=== PATIENT | female | born 1940 | race Caucasian/White ===

== ENCOUNTER 2020-08-02 08:51 | Outpatient (NON) | payer MEDICARE, SELFPAY ==
[2020-08-03 22:35] LABS: SARS-CoV-2 RNA PCR Negative
== END 2020-08-02 08:52 ==
LOC: ANHCOVIDDT 08:53
PROVIDERS: PCP Family Medicine; Visit Provider Nurse Practitioner Family
DX: Z20.828 Contact with and (suspected) exposure to other viral communicable diseases (principal)
CPT/HCPCS: 87635; C9803; U0003

== ENCOUNTER 2020-11-09 11:54 | Observation (INO) | payer MEDICARE, SELFPAY ==
[2020-11-09] VITALS (29 sets, daily range): BP systolic 134–174; BP diastolic 82–100; PULSE 90–102; RESP 15–20; TEMP 36.2–37.2; O2SAT 97–100
--- NOTE | 2020-11-09 12:16 | ED.GENADULT ---
HPI - General Adult General Chief complaint: GI Bleed Stated complaint: rectal bleeding Time Seen by Provider: 11/09/20 12:07 Source: RN notes reviewed History of Present Illness HPI narrative: Patient presents to emergency department from home for GI bleed. Patient states that starting approximately 6:30 AM this morning she has had numerous bowel movements that is containing dark maroon blood clots and some bright red blood. Patient states that she is on a baby aspirin only she denies having any fever chills abdominal pain nausea vomiting or any other symptoms. She states she last had a colonoscopy 5 years ago denies any other symptoms at this time Related Data Home Medications Medication Instructions Recorded Confirmed aspirin 81 mg tablet,delayed 81 mg PO DAILY 10/14/19 11/09/20 release calcium carbonate 600 mg calcium 600 mg PO DAILY 10/14/19 11/09/20 (1,500 mg) tablet ergocalciferol (vitamin D2) 1,250 1,250 mcg PO .biweekly cap 10/14/19 11/09/20 mcg (50,000 unit) capsule colchicine 0.6 mg PO DAILY 11/09/20 Allergies Allergy/AdvReac Type Severity Reaction Status Date / Time adhesive tape Allergy Intermediate RED/RASH Verified 02/12/19 09:47 Review of Systems Review of Systems: Narrative: Gen.: Denies fevers or chills ENT: Denies congestion Respiratory: Denies shortness of breath or cough CV: Denies chest pain or palpitations GI: See HPI denies burning, urgency, frequency or hematuria Musculoskeletal: Denies back pain or muscle pain Neuro: Denies numbness, tingling, weakness or focal weakness Skin: Denies rash Except as documented, all other systems reviewed and negative [facility] Past Medical History Medical History (Updated 11/09/20 @ 15:23 by Jaylon Stoddard DO) Anxiety and depression (~1999) Benign essential hypertension (~1989) Breast cancer in female (~11/2003) 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 Diverticulosis Gout (~2016) CHARLES (iron deficiency anemia) Osteoporosis (~2009) Urinary incontinence Surgical History Surgical History H/O mastectomy left breast 12/03/03, rt breast 11/21/11 Family History Family History Father Diabetes mellitus Grandparent Cerebrovascular accident Mother Family history of lung cancer Social History Social History Smoking status: Former smoker Smoking end date: 09/30/98 Alcohol intake: current Exam Narrative: Exam Narrative: APPEARANCE: No acute distress, nontoxic, resting in bed EYES: EOMI HEENT: Normocephalic, atraumatic, OMM RESPIRATORY: No respiratory distress Clear to auscultation bilaterally with no rhonchi wheezing or rales. CARDIOVASCULAR: Regular rate and rhythm without murmurs rubs or gallops. ABDOMINAL: Soft, nontender, nondistended, no rebound or guarding Rectal: No hemorrhoids or gross dark maroon blood that is Hemoccult positive MUSCULOSKELETAl: Moves all extremities. No clubbing, cyanosis or edema. NEURO: Awake and alert. Following commands, speech normal, no focal deficits SKIN:: Warm, dry. No rashes lesions or abrasions PSYCHIATRIC: Normal affect/mood, Course Course Emergency Course: Discussed with Dr. Maza for GI presentation work-up agrees with consult will follow as inpatient Discussed with Dr. Smith for hospital service presentation work-up agrees with admission at this time Discussed with patient and family results of workup and diagnosis. Discussed need for admission. Patient and family understand and agree to current treatment plan Vital Signs Vital signs: Vital Signs Temperature 97.2 F L 11/09/20 12:06 Pulse Rate 101 H 11/09/20 12:06 Respiratory Rate 17 11/09/20 12:06 Blood Pressure 149/89 H 11/09/20 12:06 Pulse Oximetry 100 11/09/20 12:06 Temperature 97.2 F L
[2020-11-09 12:20] LABS: Basophils Absolute Auto 0.1 K/mm3 (0.0-0.1); Basophils Percent Auto 1.5 % (0.2-1.2); Eosinophils Absolute Auto 0.1 K/mm3 (0-0.3); Eosinophils Percent Auto 3.1 % (0-4.4); Hemoglobin 12.8 g/dL (12.0-15.0); Lymphocytes Absolute Auto 1.69 K/mm3 (0.9-3.2); Mean Corpuscular HGB Conc 32.8 g/dl (32-36); Mean Corpuscular Hemoglobin 32.7 pg (26-34); Mean Corpuscular Volume 99.5 fl (80-100); Mean Platelet Volume 9.6 fl (7.4-10.4); Monocytes Absolute Auto 0.9 K/mm3 (0.1-0.6); Monocytes Percent Auto 19.9 % (2.6-8.5); Neutrophils Absolute Auto 1.8 K/mm3 (1.3-6.7); Neutrophils Percent Auto 38.5 % (45.5-73.1); Platelet Count Result 202 k/mm3 (150-375); Red Blood Count 3.92 M/mm3 (4.2-5.4); Red Cell Distribution Width 14.5 % (11.5-14.5); White Blood Count 4.6 K/mm3 (4.5-10.0)
[2020-11-09 12:31] LABS: INR 0.9
[2020-11-09 12:32] LABS: Partial Thromboplastin Time 27.6 SECONDS (22.3-36.8)
[2020-11-09 12:35] LABS: Alanine Aminotransferase 18 U/L (4-35); Albumin Level 4.3 g/dL (3.5-5.1); Alkaline Phosphatase 97 U/L (38-126); Anion Gap 7 mmol/L (8-16); Aspartate Amino Transferase 22 U/L (14-36); Bilirubin,Total 0.5 mg/dL (0.2-1.3); Blood Urea Nitrogen 16 mg/dL (7-17); Calcium 9.8 mg/dL (8.4-10.2); Carbon Dioxide 33 mmol/L (22-30); Chloride 102 mmol/L (98-107); Estimated CRCL calculation 49 ml/min; Estimated Glomerular Filt Rate > 60; Glucose 100 mg/dL (65-105); Potassium 3.4 mmol/L (3.4-5.0); Sodium 142 mmol/L (137-145)
[2020-11-09 13:03] LABS: Lactic Acid Reflex 1.1 mmol/L (0.7-2.1)
[2020-11-09] MEDS: PANTOPRAZOLE SODIUM IV 40 MG VIAL 80 MG IV PUSH (15:09)
[2020-11-09 15:17] LABS: Hematocrit 34.3 % (37.0-47.0); Hemoglobin 11.3 g/dL (12.0-15.0)
--- NOTE | 2020-11-09 15:58 | PC.NURSE ---
This patient, Nicole Peña, was admitted to 3 [facility] Surg Room 330-01. Patient/family oriented to hospital policies and general routines including ID bracelet, bed and alarms, visiting hours, pain management, procedures, bathroom and other care routines, personal items, smoking policy, room service/diet, and visiting hours. Information on how to activate the Rapid Response Team has been discussed. Patient/Family are encouraged to report perceived risks to care and to ask questions if they do not understand what they are told or what they should do.
--- NOTE | 2020-11-09 17:01 | PM.IMHP ---
H&P: HPI History of Present Illness Date/Time: 11/09/20 17:01 Chief Complaint: rectal bleeding Narrative: Nicole Peña is a 80 year old female with history of anxiety/depression, HTN, Breast Ca (s/p b/l mastectomy, chemo and radiation), SAH, and diverticulosis who presented to ED on 11/09 from her PCPs office with complaints of rectal bleeding that started earlier in the morning. Patient states starting at around 6:00 am this morning, she had four liquid bowel movements with significant amount of dark clotting, and when she wiped, she had bright red blood on toilet tissue, enough to prompt her to present to her PCP. While there, she had two more bloody BMs mixed with bright red and dark/maroon blood, thus was directed to the ED for further evaluation. She denied any associated symptoms such as rectal pain, abdominal pain, dizziness/lightheadedness. She has never had history of rectal bleeding/GI bleed in the past. No family history of colon cancer. She is not on any blood thinners. While in the ED, she was found to have a normal H&H and elevated BP. Dr. Addison was consulted from the ED for further evaluation. Patient was admitted under setting of suspected GI bleed, likely from known diverticulosis. Currently, patient denies f/c/s, myalgias/arthralgias, headaches, dizziness, lightheadedness, cp/palpitations, sob/cough, n/v/d/c, abd pain, dysuria, hematuria, cloudy urine, calf pain/swelling. 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 She wishes to be a DNR. Her PCP is Dr. Jack. Smoking packs per day: 1 Smoking cigarettes per day: 20.0 Smoking status: Former smoker Tobacco type: cigarettes Smoking end date: 09/30/98 Additional smoking assessment comments: 20 YRS AGO SMOKED AND HAS NOT EVER SINCE Alcohol intake: current Meds Home Medications and Allergies Home Medications Medication Instructions Recorded Confirmed Type aspirin 81 mg tablet,delayed 81 mg PO DAILY 10/14/19 11/09/20 History release calcium carbonate 600 mg calcium 600 mg PO DAILY 10/14/19 11/09/20 History (1,500 mg) tablet diltiazem HCl 120 mg tablet 120 mg PO DAILY #90 tablet 10/14/19 11/09/20 Rx ergocalciferol (vitamin D2) 1,250 1,250 mcg PO .biweekly cap 10/14/19 11/09/20 History mcg (50,000 unit) capsule venlafaxine 75 mg capsule,extended 75 mg PO DAILY #90 cap 10/14/19 11/09/20 Rx release 24 hr losartan 100 mg tablet 100 mg PO DAILY #90 tablet 11/26/19 11/09/20 Rx alendronate 70 mg tablet 70 mg PO WEEKLY #12 tablet 04/21/20 11/09/20 Rx allopurinol 300 mg tablet 300 mg PO DAILY #90 tablet 11/08/20 11/09/20 Rx colchicine 0.6 mg PO DAILY 11/09/20 History Allergies Allergy/AdvReac Type Severity Reaction Status Date / Time adhesive tape Allergy Intermediate RED/RASH Verified 02/12/19 09:47 Vital Signs Vital Signs Temp Pulse Resp BP Pulse Ox 97.2 F L 101 H 17 149/89 H 100 11/09/20 12:06 11/09/20 12:06 11/09/20 12:06 11/09/20 12
--- NOTE | 2020-11-09 17:43 | WPDGICN ---
Assessment and Plan Assessment and plan (1) GI bleed: Code(s): K92.2 - Gastrointestinal hemorrhage, unspecified Status: Acute Assessment and Plan: most likely diverticular source, she still had clots last time used restroom supportive care, monitor h/h she is agreeable to have colonoscopy tomorrow to look if still ongoing bleeding (2) Rectal bleeding: Code(s): K62.5 - Hemorrhage of anus and rectum Status: Acute Assessment and Plan: monitor and colonoscopy tomorrow (3) Acute blood loss anemia: Code(s): D62 - Acute posthemorrhagic anemia Status: Acute Assessment and Plan: trend h/h (4) Colon, diverticulosis: Code(s): K57.30 - Diverticulosis of large intestine without perforation or abscess without bleeding Status: Acute GI Consult Note Consult date/time: 11/09/20 17:43 Reason for consult: rectal bleed HPI: Nicole Peña is a 80 year old female with history of anxiety, HTN, Breast Ca (s/p b/l mastectomy, chemo and radiation), and last colonoscopy 2019 with left sided diverticulosis, hemorrhoids without polyps here with new onset of rectal bleeding with clots x5 today, never had bleeding. Denies abdominal pain, nausea or diarrhea. She is not taking blood thinners other than baby aspirin. Hb 11.3 (on arrival was 12.8). Denies fatigue or dizziness. Review of Systems Constitutional: Constitutional: Denies fatigue Eyes: Eyes: Reports no additional eye complaints ENT: Reports system reviewed and no additional complaints, except as documented Cardiovascular: Cardiovascular: Reports no additional cardiovascular complaints Respiratory: Respiratory: Denies dyspnea Gastrointestinal: Gastrointestinal: Denies abdominal pain and Reports hematochezia Genitourinary: Genitourinary: Denies flank pain Musculoskeletal: Musculoskeletal: Denies neck pain Integumentary/Breasts: Skin/Breast: Denies dry skin Neurologic: Reports system reviewed and no additional complaints, except as documented Psychiatric: Psychiatric: Denies behavioral changes PMFSH Past Medical History Medical History Anxiety and depression (~1999) Benign essential hypertension (~1989) Breast cancer in female (~11/2003) 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 She wishes to be a DNR. Her PCP is Dr. Jack. Smoking packs per day: 1 Smoking cigarettes per day: 20.0 Smoking status: Former smoker Tobacco type: cigarettes Smoking end date: 09/30/98 Additional smoking assessment comments: 20 YRS AGO SMOKED AND HAS NOT EVER SINCE Alcohol intake: current Meds Home Medications and Allergies Home Medications Medication Instructions Recorded Confirmed Type aspirin 81 mg tablet,delayed 81 mg PO DAILY 10/14/19 11/09/20 History release calcium carbonate 600 mg calcium 600 mg PO DAILY 10/14/19 11/09/20 History (1,500 mg) tablet diltiazem HCl 120 mg tablet 120 mg PO DAILY #90 tablet 10/14/19 11/09/20 Rx ergocalciferol (vitamin D2) 1,250 1,250 mcg PO .biweekly cap 10/14/19 11/09/20 History mcg (50,000 unit) capsule venlafaxine 75 mg capsule,extended 75 mg PO DAILY #90 cap 10/14/19 11/09/20 Rx release 24 hr losartan 100 mg tablet 100 mg PO DAILY #90
[2020-11-09] MEDS: SODIUM CHLORIDE 0.9% IV 1,000 ML 100 ML IV CONT (18:22)
[2020-11-09] MEDS: dilTIAZem HCL 60 MG TABLET 120 MG PO (18:23)
[2020-11-09] MEDS: BISACODYL 5 MG TABLET EC 20 MG PO (18:23)
[2020-11-09] MEDS: PEG (High)/E-LYTE SOLN 4,000 ML BTL 4000 ML PO (18:23)
[2020-11-10] VITALS (10 sets, daily range): BP systolic 146–176; BP diastolic 80–97; PULSE 93–115; RESP 16–25; TEMP 36.3–37.2; O2SAT 97–100
[2020-11-10 02:58] LABS: Eosinophils Absolute Auto 0.1 K/mm3 (0-0.3); Eosinophils Percent Auto 2.8 % (0-4.4); Hematocrit 38.4 % (37.0-47.0); Hemoglobin 13.1 g/dL (12.0-15.0); Immature Granulocyte Absolute 0.01 K/mm3 (0.00-0.031); Immature Granulocyte Percent A 0.3 % (0-0.5); Lymphocytes Absolute Auto 1.04 K/mm3 (0.9-3.2); Lymphocytes Percent Auto 26.1 % (18.3-44.2); Mean Corpuscular HGB Conc 34.1 g/dl (32-36); Mean Corpuscular Hemoglobin 32.6 pg (26-34); Mean Corpuscular Volume 95.5 fl (80-100); Mean Platelet Volume 9.8 fl (7.4-10.4); Monocytes Absolute Auto 0.8 K/mm3 (0.1-0.6); Monocytes Percent Auto 20.1 % (2.6-8.5); Neutrophils Percent Auto 49.7 % (45.5-73.1); Platelet Count Result 163 k/mm3 (150-375); Red Blood Count 4.02 M/mm3 (4.2-5.4); Red Cell Distribution Width 13.9 % (11.5-14.5)
[2020-11-10 03:09] LABS: Anion Gap 9 mmol/L (8-16); Blood Urea Nitrogen 13 mg/dL (7-17); Calcium 9.5 mg/dL (8.4-10.2); Carbon Dioxide 28 mmol/L (22-30); Chloride 102 mmol/L (98-107); Creatine Kinase 55 U/L (30-135); Estimated CRCL calculation 58 ml/min; Estimated Glomerular Filt Rate > 60; Glucose 98 mg/dL (65-105); Sodium 139 mmol/L (137-145)
[2020-11-10] MEDS: MAGNESIUM CITRATE 300 ML BTL 150 ML PO (05:20)
[2020-11-10] MEDS: SODIUM CHLORIDE 0.9% IV 1,000 ML 100 ML IV CONT (05:28)
[2020-11-10] MEDS: allopurinoL 300 MG TABLET PO (09:12)
[2020-11-10] MEDS: COLCHICINE 0.6 MG TABLET PO (09:12)
[2020-11-10] MEDS: LOSARTAN POTASSIUM 100 MG TABLET PO (09:12)
[2020-11-10] MEDS: CALCIUM CARBONATE (OSCAL) 500 MG TABLET PO ×2 (09:12→16:54)
--- NOTE | 2020-11-10 09:27 | PM.IMPN ---
Progress Note: A&P Assessment and Plan (1) GI bleed: Code(s): K92.2 - Gastrointestinal hemorrhage, unspecified Status: Acute Assessment and Plan: Patient has history of diverticulosis and internal hemorrhoids. [place] that this is likely due to diverticulosis. Bleeding has stopped. Hgb 13.1 this morning; stable. Dr. Maza consulted from the ED and appreciate recommendations; plans for colonoscopy this afternoon Supportive Care Await colonoscopy results and further GI rec Pending results of colonoscopy, hopefully discharge today or tomorrow Repeat H&H early next week Monitor for now F/u with PCP (2) Acute blood loss anemia: Code(s): D62 - Acute posthemorrhagic anemia Status: Acute Assessment and Plan: H&H WNL today. Suspect from GI bleed, likely from diverticulosis. Patient does have history of CHARLES in the past. Monitor H&H as outpatient after discharge (3) Gout: Onset Date: ~2016 Code(s): M10.9 - Gout, unspecified Status: Acute Assessment and Plan: No acute issues Resume home meds today (4) Anxiety and depression: Onset Date: ~1999 Code(s): F41.9 - Anxiety disorder, unspecified; F32.9 - Major depressive disorder, single episode, unspecified Status: Chronic Assessment and Plan: No acute issues Resume home meds today (5) Benign essential hypertension: Onset Date: ~1989 Code(s): I10 - Essential (primary) hypertension Status: Acute Assessment and Plan: BP 170s sys most recently, although she has not taken her medications since 11/08; these have been resumed Continue home medications Metoprolol 5 mg IV Q6hr PRN for tachycardia Monitor Subjective Date/time seen: 11/10/20 09:27 Interval history: Patient is a 80 yo F with history of anxiety/depression, HTN, Breast Ca (s/p b/l mastectomy, chemo and radiation), SAH, and diverticulosis who is seen in follow up for suspected lower GI bleed likely from diverticulosis. Patient states she feels better today. She has had several BMs since yesterday, which are nonbloody and nonmelenic now. Still no abd pain, no fevers/chills, or dizziness/lightheadedness. No other complaint at the moment other than wanting to eat. Denies headaches, changes in v/h, cp/palpitations, sob/cough, n/v, dysuria, calf pain/swelling. Review of Systems Review of Systems: All systems reviewed & are unremarkable except as noted in HPI and below Exam Narrative: Exam Narrative: General: Patient sitting on side of bed in no acute distress. RN in room at time of visit HEENT: Normocephalic, EOMI, oral mucosa moist. Cardiovascular: Tachycardic, regular rate. systolic murmur appreciated. Tele shows sinus tachycardia with occasional PVCs. Patient asymptomatic Respiratory: Lungs clear to auscultation all sanchez. Non-labored breathing. Abdomen: Soft, non-tender, non-distended, bowel sounds present, hypoactive Extremities: Peripheral pulses intact. No edema. NTTP b/l calves Neuro: No focal neurological deficits. Speech is clear. A&Ox3 Objective Data Vital Signs Vital Signs: Last Vital Signs Temp 97.4 F L 11/10/20 06:00 Pulse 115 H 11/10/20 06:00 Resp 20 11/10/20 06:00 BP 176/97 H 11/10/20 06:00 Pulse Ox 99 11/10/20 06:00 Intake/Output Intake/Output: Intake & Output 11/07/20 11/08/20 11/09/20 11/10/20 23:59 23:59 23:59 23:59 Intake Total 490 2000 Output Total 1800 Balance 490 200 Meds/Results Medications: Active Medications Generic Name Dose Route Start Last Admin Trade Name Freq PRN Reason Stop Dose Admin Allopurinol 300 mg 11/10/20 09:00 11/10/20 09:12 Allopurinol 300 Mg Tablet PO 300 mg DAILY ROZINA Administration Calcium Carbonate 500 mg 11/10/20 08:
--- NOTE | 2020-11-10 09:58 | WPDANESEPPF ---
Anes - Initial Pre Proc Eval Procedure: Operation Date: 11/10/20 15:15 Proposed Procedures p Colonoscopy - Deniz Addison MD Date/Time: 11/10/20 09:58 Surgeon: William Zuniga PA-C Pre Op Diagnosis: Gi bleed Patient Data Age: 80 Gender: F Height: 1.57 m Weight: 56.2 kg Last Vital Signs Temp 36.3 C L 11/10/20 06:00 Pulse 115 H 11/10/20 06:00 Resp 20 11/10/20 06:00 BP 176/97 H 11/10/20 06:00 Pulse Ox 99 11/10/20 06:00 Allergies Allergy/AdvReac Type Severity Reaction Status Date / Time adhesive tape Allergy Intermediate RED/RASH Verified 02/12/19 09:47 Home Medications Medication Instructions Recorded Confirmed Type aspirin 81 mg tablet,delayed 81 mg PO DAILY 10/14/19 11/09/20 History release calcium carbonate 600 mg calcium 600 mg PO BID 10/14/19 11/09/20 History (1,500 mg) tablet diltiazem HCl 120 mg tablet 120 mg PO DAILY #90 tablet 10/14/19 11/09/20 Rx ergocalciferol (vitamin D2) 1,250 1,250 mcg PO [id number] cap 10/14/19 11/09/20 History mcg (50,000 unit) capsule venlafaxine 75 mg capsule,extended 75 mg PO DAILY #90 cap 10/14/19 11/09/20 Rx release 24 hr losartan 100 mg tablet 100 mg PO DAILY #90 tablet 11/26/19 11/09/20 Rx alendronate 70 mg tablet 70 mg PO WEEKLY #12 tablet 04/21/20 11/09/20 Rx allopurinol 300 mg tablet 300 mg PO DAILY #90 tablet 11/08/20 11/09/20 Rx Systane (PF) 1 drp EACH EYE TID 11/09/20 11/09/20 History colchicine 0.6 mg PO DAILY 11/09/20 11/09/20 History vitamins A,C,[id number] 2 tablet PO BID 11/09/20 11/09/20 History [Ocuvite Preservision] Laboratory Tests 11/09/20 11/09/20 11/09/20 12:09 12:09 12:09 WBC 4.6 K/mm3 K/mm3 (4.5-10.0) RBC 3.92 M/mm3 L M/mm3 (4.2-5.4) Hgb 12.8 g/dL g/dL (12.0-15.0) Hct 39.0 % % (37.0-47.0) MCV 99.5 fl fl (80-100) MCH 32.7 pg pg (26-34) MCHC 32.8 g/dl g/dl (32-36) RDW 14.5 % % (11.5-14.5) Plt Count 202 k/mm3 k/mm3 (150-375) MPV 9.6 fl fl (7.4-10.4) Immature Gran % (Auto) 0.0 % % (0-0.5) Neut % (Auto) 38.5 % L % (45.5-73.1) Lymph % (Auto) 37.0 % % (18.3-44.2) [place] % (Auto) 19.9 % H % (2.6-8.5) Eos % (Auto) 3.1 % % (0-4.4) Baso % (Auto) 1.5 % H % (0.2-1.2) Lymph # (Auto) 1.69 K/mm3 K/mm3 (0.9-3.2) [place] # (Auto) 0.9 K/mm3 H K/mm3 (0.1-0.6) Eos # (Auto) 0.1 K/mm3 K/mm3 (0-0.3) Baso # (Auto) 0.1 K/mm3 K/mm3 (0.0-0.1) Abs Immat Gran (auto) 0.00 K/mm3 K/mm3 (0.00-0.031) Absolute Neuts (auto) 1.8 K/mm3 K/mm3 (1.3-6.7) Absolute Nucleated RBC 0.0 K/mm3 K/mm3 (0.0-0.012) Nucleated RBC % 0.0 % % (0.0-0.2) PT 13.0 Seconds Seconds (11.1-14.7) INR 0.9 APTT 27.6 SECONDS SECONDS (22.3-36.8) Sodium 142 mmol/L mmol/L (137-145) Potassium 3.4 mmol/L mmol/L (3.4-5.0) Chloride 102 mmol/L mmol/L (98-107) Carbon Dioxide 33 mmol/L H mmol/L (22-30) Anion Gap 7 mmol/L L mmol/L (8-16) BUN 16 mg/dL mg/dL (7-17) Creatinine 0.60 mg/dL L mg/dL (0.7-1.0) Estim Creat Clear Calc 49 ml/min ml/min Estimated GFR > 60 (59 - ) Glucose 100 mg/dL mg/dL (65-105) Lactic Acid Calcium 9.8 mg/dL mg/dL (8.4-10.2) Total Bilirubin 0.5 mg/dL mg/dL (0.2-1.3) AST 22 U/L U/L (14-36) ALT 18 U/L U/L (4-35) Alkaline Phosphatase 97 U/L U/L (38-126) Total Creatine Kinase Total Protein 8.0 g/dL g/dL (6.3-8.2) Albumin 4.3 g/dL g/dL (3.5-5.1) Blood Type Antibody Screen 11/09/20 11/09/20 11/09/20 12:09 12:29 15:07 WBC RBC Hgb 11.3 g/dL L g/dL (12.0-1
[2020-11-10] MEDS: LACTATED RINGERS 1,000 ML 150 ML IV CONT (14:23)
--- NOTE | 2020-11-10 16:21 | PM.DS ---
DS: Admitting Diagnosis Admitting Diagnosis Admitting Diagnosis: GI bleed DS: Discharge Diagnosis Discharge Diagnosis (1) GI bleed: Code(s): K92.2 - Gastrointestinal hemorrhage, unspecified Status: Acute Assessment and Plan: Patient has history of diverticulosis and internal hemorrhoids. [place] that this is likely due to diverticulosis. Bleeding has stopped. Hgb 13.1 this morning; stable. Dr. Maza consulted from the ED and appreciate recommendations; Colonoscopy performed today per Dr. Maza which showed multiple diverticula in the descending and sigmoid colon but no active bleeding or inflammation, small internal hemorrhoids seen as well. Okay for discharge from GI standpoint Discharge home today Repeat H&H early next week High Fiber diet F/u with PCP (2) Acute blood loss anemia: Code(s): D62 - Acute posthemorrhagic anemia Status: Acute Assessment and Plan: H&H WNL today. Suspect from GI bleed, likely from diverticulosis. Patient does have history of CHARLES in the past. Monitor H&H as outpatient after discharge (3) Gout: Onset Date: ~2016 Code(s): M10.9 - Gout, unspecified Status: Acute Assessment and Plan: No acute issues Resume home meds today (4) Anxiety and depression: Onset Date: ~1999 Code(s): F41.9 - Anxiety disorder, unspecified; F32.9 - Major depressive disorder, single episode, unspecified Status: Chronic Assessment and Plan: No acute issues Resume home meds today (5) Benign essential hypertension: Onset Date: ~1989 Code(s): I10 - Essential (primary) hypertension Status: Acute Assessment and Plan: BP 170s sys most recently, although she has not taken her medications since 11/08 and just resumed today Continue home medications Metoprolol 5 mg IV Q6hr PRN for tachycardia Monitor DS: Summary Hospital Course Reason for hospitalization: GI bleed, mild anemia Hospital Course: Date of arrival: 11/09/20 Date of discharge: 11/10/20 Per H&P 11/09/20: Nicole Peña is a 80 year old female with history of anxiety/depression, HTN, Breast Ca (s/p b/l mastectomy, chemo and radiation), SAH, and diverticulosis who presented to ED on 11/09 from her PCPs office with complaints of rectal bleeding that started earlier in the morning. Patient states starting at around 6:00 am this morning, she had four liquid bowel movements with significant amount of dark clotting, and when she wiped, she had bright red blood on toilet tissue, enough to prompt her to present to her PCP. While there, she had two more bloody BMs mixed with bright red and dark/maroon blood, thus was directed to the ED for further evaluation. She denied any associated symptoms such as rectal pain, abdominal pain, dizziness/lightheadedness. She has never had history of rectal bleeding/GI bleed in the past. No family history of colon cancer. She is not on any blood thinners. While in the ED, she was found to have a normal H&H and elevated BP. Dr. Addison was consulted from the ED for further evaluation. Patient was admitted under setting of suspected GI bleed, likely from known diverticulosis. Currently, patient denies f/c/s, myalgias/arthralgias, headaches, dizziness, lightheadedness, cp/palpitations, sob/cough, n/v/d/c, abd pain, dysuria, hematuria, cloudy urine, calf pain/swelling. Patient was admitted to the hospitalist service for further management/treatment. H&H was trended and became mildly anemic on 11/09, but H&H then trended to within normal limits on 11/10. Dr. Addison performed Colonoscopy on 11/10 and found nonbleeding diverticula and internal hemorrhoids; high fiber diet was recommended. Plan was for her to hold her 81 mg aspirin for about 1 we
[2020-11-10] MEDS: POTASSIUM CHLORIDE 20 MEQ TABLET 40 MEQ PO (16:53)
== END 2020-11-10 18:15 | disposition home or self-care (01) ==
LOC: ANHED 14:29 → ANH3MEDSUR 15:16
PROVIDERS: Internal Medicine Gastroenterology; Admitting Provider Internal Medicine; Emergency Provider Emergency Medicine; PCP Family Medicine; Visit Provider Physician Assistant
PROC: 0DJD8ZZ Inspection of Lower Intestinal Tract, Via Natural or Artificial Opening Endoscopic (ICD-10-PCS; CPT 45378; principal; 2020-11-10 15:15)
DX: K57.30 Diverticulosis of large intestine without perforation or abscess without bleeding (principal); D62 Acute posthemorrhagic anemia; M10.9 Gout, unspecified; F41.9 Anxiety disorder, unspecified; I10 Essential (primary) hypertension; K64.8 Other hemorrhoids; F32.9 Major depressive disorder, single episode, unspecified; D50.9 Iron deficiency anemia, unspecified; M81.0 Age-related osteoporosis without current pathological fracture; E87.6 Hypokalemia; R32 Unspecified urinary incontinence; Z90.13 Acquired absence of bilateral breasts and nipples; Z87.891 Personal history of nicotine dependence; Z92.3 Personal history of irradiation; Z92.21 Personal history of antineoplastic chemotherapy; Z87.820 Personal history of traumatic brain injury; Z79.899 Other long term (current) drug therapy; Z85.3 Personal history of malignant neoplasm of breast; Z79.82 Long term (current) use of aspirin
CPT/HCPCS: 45378; 36415; 80048; 80053; 82550; 83605; 85014; 85018; 85025; 85610; 85730; 86850; 86900; 86901; 96360; 96365; 96366; 99285; A9270; C9113; G0378; J2001; J2704; J7030; J7060; J7120

== ENCOUNTER 2020-12-23 13:26 | Outpatient (CLI) | payer MEDICARE, SELFPAY ==
--- NOTE | 2020-12-23 13:51 | ECHO_ITS ---
Patient Info Name: Nicole Peña Age: 80 years : 1940 Gender: Female Ht: 62 in Wt: 125 lbs BSA: 1.58 m2 HR: 95 bpm BP: 167 / 97 mmHg Technical Quality: Good Exam Date: 12/23/2020 1:55 PM Exam Location: [facility] Patient Status: Outpatient Admit Date: 12/23/2020 Staff Ordering Physician: Duong Jack MD Chemistry Laboratory Technician: Dilma Garcia RDCS Attending Provider: Duong Jack MD Exam Type: CA echo doppler color flow Study Info Indications R01.1 - Cardiac murmur, unspecified Complete two-dimensional, color flow and Doppler transthoracic echocardiogram is performed. Summary 1. Complete two-dimensional, color flow and Doppler transthoracic echocardiogram is performed. 2. Left ventricular chamber dimension is normal. 3. Ventricular septum is sigmoid shaped. No LVOT obstruction. 4. Left ventricular systolic function is normal, estimated at 60-65%. 5. There is mildly increased left ventricular wall thickness. 6. The left ventricular diastolic function is grade I diastolic dysfunction. 7. E/e' 28 is significantly elevated. 8. There is moderate aortic valve sclerosis. 9. There is trace aortic valve regurgitation. 10. There is mild to moderate aortic valve stenosis with a peak velocity of 235 cm/s, mean gradient of 12 mmHg, and aortic valve area of 2.2 cm2. Aortic valve area by planimetry is 1.3 cm2. 11. The mitral valve has mildly thickened leaflets and moderately calcified annulus. 12. There is mild mitral valve regurgitation. 13. No pulmonary hypertension, estimated pulmonary arterial systolic pressure is 34 mmHg. Left Ventricle E/e' 28 is significantly elevated. Ventricular septum is sigmoid shaped. No LVOT obstruction. Left ventricular chamber dimension is normal. Left ventricular systolic function is normal, estimated at 60-65%. There is mildly increased left ventricular wall thickness. The left ventricular diastolic function is grade I diastolic dysfunction. Right Ventricle Right ventricular chamber dimension is normal. Right ventricular systolic function is normal. Left Atria Left atrial chamber dimension is normal. Right Atria Right atrial chamber dimension is normal. Aortic Valve There is mild to moderate aortic valve stenosis with a peak velocity of 235 cm/s, mean gradient of 12 mmHg, and aortic valve area of 2.2 cm2. Aortic valve area by planimetry is 1.3 cm2. The aortic valve is trileaflet. There is moderate aortic valve sclerosis. There is trace aortic valve regurgitation. Pulmonic Valve There is no pulmonic regurgitation. Mitral Valve The mitral valve has mildly thickened leaflets and moderately calcified annulus. There is no mitral valve stenosis. There is mild mitral valve regurgitation. Tricuspid Valve There is no tricuspid valve regurgitation. No pulmonary hypertension, estimated pulmonary arterial systolic pressure is 34 mmHg. Pericardium/Pleural There is no pericardial effusion. Inferior Vena Cava Normal inferior vena cava with >50% collapse upon inspiration consistent with normal right atrial pressure, 5 mmHg. Aorta The aortic root size at the sinus of Valsalva is normal. Left Ventricular Outflow Tract Name Value Normal LVOT 2D LVOT Diameter
== END 2020-12-23 13:27 | disposition home or self-care (01) ==
PROVIDERS: PCP Family Medicine; Visit Provider Family Medicine
DX: R01.1 Cardiac murmur, unspecified (principal)
CPT/HCPCS: 93306

== ENCOUNTER 2021-01-10 18:02 | Emergency (ER) | payer MEDICARE, SELFPAY ==
--- NOTE | ~2021-01-10 | XR_ITS ---
XR shoulder RT min 2V DATE: 01/10/2021 18:28 INDICATION: Fall. Generalized right shoulder pain TECHNIQUE: 4 views COMPARISON: None FINDINGS: There is diffuse osteopenia. Normal alignment at the acromioclavicular and glenohumeral marianela nts. No fracture, dislocation, periosteal reaction or bone destruction of the right shoulder. No significa nt abnormal soft tissue calcification of right shoulder. There are multiple surgical clips in the right axillary area consistent with prior axillary node diss ection. There is evidence of a large hiatal hernia. Prominent thoracic aortic arch calcification. IMPRESSION: Diffuse osteopenia No fracture or dislocation or bone destruction of the right shoulder Reviewed, dictated and finalized at location A.
--- NOTE | ~2021-01-10 | XR_ITS ---
XR lumbar spine 2-3V DATE: 01/10/2021 18:27 INDICATION: Fall. Generalized low back pain TECHNIQUE: AP, lateral, coned lateral lumbosacral views COMPARISON: 08/16/2011 MRI lumbar spine FINDINGS: There is diffuse osteopenia. Mild dextro scoliosis of the lumbar spine. There is severe degenerative disease and mild retrolisthesis at L1-2. Severe degenerative disc disease at L2-3. There is moderately severe degenerative disc disease and mild rightward translation at L3-4. Moderate degenerative disc disease and grade 1 anterolisthesis at L4-5, likely due to degenerative ch judith evident at the apophyseal joints of the lumbar and lumbosacral area.. Severe degenerative disc disease at L5-S1. No fracture or bone destruction of the lumbar spine is evident. The lumbar pedicles appear intact. The sacroiliac joints are unremarkable. There is extensive calcification of the abdominal aorta and common iliac arteries, without evidence o f aneurysm. IMPRESSION: Diffuse osteopenia Prominent multilevel degenerative disc disease Reviewed, dictated and finalized at location A.
[2021-01-10 18:04] VITALS: BP 181/89; PULSE 102; RESP 18; TEMP 36.3; O2SAT 97
--- NOTE | 2021-01-10 21:44 | ED.GENADULT ---
HPI - General Adult General Chief complaint: Fall Stated complaint: fall, right shoulder pain Time Seen by Provider: 01/10/21 21:25 Source: patient History of Present Illness HPI narrative: Patient is a 80 y/o female complaining of right shoulder pain and low back pain since 5 hours ago when she fell down some steps. She describes her pain as an aching sensation and rates it as 7/10. She states that movement and deep respiration worsens her pain. She denies hitting her head or losing consciousness. She has no headache, neck pain, chest pain or abdominal pain. Related Data Home Medications Medication Instructions Recorded Confirmed aspirin 81 mg tablet,delayed 81 mg PO DAILY 10/14/19 12/29/20 release calcium carbonate 600 mg calcium 600 mg PO BID 10/14/19 12/29/20 (1,500 mg) tablet ergocalciferol (vitamin D2) 1,250 1,250 mcg PO [id number] cap 10/14/19 12/29/20 mcg (50,000 unit) capsule Systane (PF) 1 drp EACH EYE TID 11/09/20 12/29/20 vitamins A,C,R-nyll-izelnd 2 tablet PO BID 11/09/20 12/29/20 colchicine 0.6 mg capsule 0.6 mg PO .PRN cap 12/29/20 12/29/20 Allergies Allergy/AdvReac Type Severity Reaction Status Date / Time adhesive tape Allergy Intermediate RED/RASH Verified 12/29/20 11:29 Review of Systems Constitutional: Constitutional: Denies chills, Denies fever(s), Denies headache(s) and Denies weakness Eyes: Eyes: Denies blurry vision ENT: Denies headache(s) and Denies neck pain Cardiovascular: Cardiovascular: Denies chest pain and Denies dyspnea Respiratory: Respiratory: Denies cough and Denies dyspnea Gastrointestinal: Gastrointestinal: Denies abdominal pain, Denies diarrhea, Denies nausea and Denies vomiting Genitourinary: Genitourinary: Denies hematuria and Denies dysuria Musculoskeletal: Musculoskeletal: Reports back pain, Reports arthralgias (right shoulder pain) and Denies neck pain Neurologic: Denies headache(s) and Denies weakness [facility] Past Medical History Medical History Anxiety and depression (~1999) Benign essential hypertension (~1989) Breast cancer in female (~11/2003) 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 She wishes to be a DNR. Her PCP is Dr. Jack. Smoking packs per day: 1 Smoking cigarettes per day: 20.0 Smoking status: Former smoker Tobacco type: cigarettes Smoking end date: 09/30/98 Additional smoking assessment comments: 20 YRS AGO SMOKED AND HAS NOT EVER SINCE Alcohol intake: current Gender identity (if verbalized by the patient): Female Exam Const: General: no acute distress and well developed Orientation/consciousness: oriented to person, oriented to place, oriented to time and patient oriented x3 HENMT: Head: normocephalic Ears: external ears normal General nose exam: Normal external nose present Eyes: General: appearance normal, both eyes and all related structures Conjunctivae: conjunctivae normal Neck: Neck: normal visual inspection and full ROM Chest: Chest palpation & inspection: normal inspection of the chest and no tenderness Resp: Effort & Inspection: normal respiratory effort Auscultation: clear to auscultation b
[2021-01-10 23:09] VITALS: BP 176/95; PULSE 106; RESP 14; TEMP 36.4; O2SAT 97
== END 2021-01-10 23:10 | disposition home or self-care (01) ==
PROVIDERS: Emergency Provider Emergency Medicine; PCP Family Medicine
DX: M25.511 Pain in right shoulder (principal); M54.5 Low back pain; Z87.891 Personal history of nicotine dependence; F41.9 Anxiety disorder, unspecified; F32.9 Major depressive disorder, single episode, unspecified; K57.90 Diverticulosis of intestine, part unspecified, without perforation or abscess without bleeding
CPT/HCPCS: 72100; 73030; 99284

== ENCOUNTER 2021-05-06 14:47 | Inpatient (IN) | payer MEDICARE, SELFPAY ==
[2021-05-06] VITALS (17 sets, daily range): BP systolic 118–190; BP diastolic 71–98; PULSE 99–123; RESP 18–30; TEMP 36.6–37.4; O2SAT 95–100; BMI 21.7
--- NOTE | ~2021-05-06 | US_ITS ---
US abdomen limited INDICATION: Elevated liver function tests PROCEDURE: Realtime right upper abdominal ultrasound. COMPARISON: No prior studies for comparison. FINDINGS: The pancreas is normal without focal mass or pancreatic ductal dilation. Liver echotexture is normal without focal mass or intrahepatic biliary dilatation. There is normal directional flow i n the portal vein. There are echogenic foci in the gallbladder lumen without definite posterior shadowing, compatible wi th polyps. There is comet tail artifact from the nondependent aspect of the gallbladder, compatible w ith adenomyomatosis. Common bile duct measures 5 mm. No sonographic Taylor's sign. There is mild ri ght hydronephrosis versus parapelvic cyst IMPRESSION: 1: Gallbladder polyps with adenomyomatosis. Reviewed, dictated and finalized at location A.
--- NOTE | ~2021-05-06 | CT_ITS ---
EXAMINATION: CTA chest PE abdomen pel DATE: 05/10/2021 14:11 INDICATION: Shortness of breath, urinary retention, elevated liver enzymes TECHNIQUE: Computed tomography angiography (CTA) of the chest was performed with 100 mL Omnipaque-350 intravenous contrast timed to evaluate the pulmonary arteries. Subsequent postcontrast images of the abdomen and pelvis are obtained. Coronal maximum intensity projection 3D-reconstructions were create d by the technologist. The dose-length product (DLP) was 588.16 mGy-cm. Automated exposure control an d iterative reconstruction technique were employed. COMPARISON: 05/06/2021 FINDINGS: CTA CHEST: The pulmonary arteries are well-opacified. No pulmonary embolism is identified. Sensitivit y slightly limited by respiratory motion artifact. There are small pleural effusions, right greater t echevarria left. Again noted is a large hiatal hernia containing stomach, colon, and pancreas pancreas which causes passive atelectasis of the lower lung zones. There is no pneumothorax. No pathologically enla rged thoracic lymph nodes are identified. The heart size is normal. There is severe thoracic spondylo sis. ABDOMEN/PELVIS CT: There is a small amount of enteric contrast material from recent modified esophagr am. The liver, pancreas, gallbladder, and adrenal glands are normal. Punctate calcifications in an ot herwise normal spleen likely represent healed granulomatous disease. There is mild right hydronephros is, slightly improved since the prior examination. There is calcified atherosclerosis of the aorta an d many of the other arteries. No pathologically enlarged abdominal or pelvic lymph nodes are identifi ed. Gas in the urinary bladder may reflect recent catheterization. Again noted is a segment of wall t hickening in the ascending colon with adjacent fat stranding. There is a chronic compression fracture of T12 and a burst fracture of L1. IMPRESSION: 1. No pulmonary embolism, sensitivity slightly limited by respiratory motion. 2. Short segment of wall thickening in the ascending colon which could reflect colitis however malign elo could have a similar appearance. Recommend correlation with colonoscopy history. 3. Small pleural effusions. 4. Large hiatal hernia. 5. Mild right hydronephrosis with interval improvement. Reviewed, dictated and finalized at location B. IMPRESSION: 1. No pulmonary embolism, sensitivity slightly limited by respiratory motion. 2. Short segment of wall thickening in the ascending colon which could reflect colitis however malignancy could have a similar appearance. Recommend correlati on with colonoscopy history. 3. Small pleural effusions. 4. Large hiatal hernia. 5. Mild right hydronephrosis with interval improvement.
--- NOTE | ~2021-05-06 | XR_ITS ---
EXAMINATION: XR chest 1V portable DATE: 05/08/2021 08:30 INDICATION: Shortness of breath. Wheezing. TECHNIQUE: A single frontal view of the chest was obtained. COMPARISON: CT abdomen and pelvis 05/06/2021, CT cervical spine 08/06/2018 FINDINGS: There is a large hiatal hernia. There are airspace opacities in the mid and lower lung zone s. There are small pleural effusions. No pneumothorax. The heart size is normal. There are surgical c lips in the axillae. 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 There is an electronic implant in left anterior chest wall. IMPRESSION: 1. Small pleural effusions. 2. Airspace opacities in the mid and lower lung zones, consistent with atelectasis versus pneumonia. 3. Large hiatal hernia. Reviewed, dictated and finalized at location A. IMPRESSION: 1. Small pleural effusions. 2. Airspace opacities in the mid and lower lung zones, consistent with atelecta sis versus pneumonia. 3. Large hiatal hernia.
--- NOTE | ~2021-05-06 | CT_ITS ---
EXAMINATION: CT brain wo con DATE: 05/07/2021 02:10 INDICATION: History of subarachnoid hemorrhage TECHNIQUE: Computed tomography (CT) of the head was performed without intravenous contrast. The dose- length product was 681.00 mGy-cm. Automated exposure control and iterative reconstruction technique w ere employed. COMPARISON: 08/06/2018 FINDINGS: Generalized atrophy. There are scattered mild periventricular and subcortical white matter changes, most likely related to small vessel ischemic disease (microangiopathy). Paranasal sinuses ar e clear. Mastoids are pneumatized. There is intracranial atherosclerosis. No acute intracranial hemor rhage, infarction, mass or mass effect. IMPRESSION: 1. No acute intracranial abnormality. 2: Chronic age-related findings. Reviewed, dictated and finalized at location A.
--- NOTE | ~2021-05-06 | US_ITS ---
EXAMINATION:US venous doppler LE BI INDICATION:Elevated d-dimer TECHNIQUE: Multiple grayscale, color flow and Doppler images of the right and left lower extremity de ep venous systems were obtained and reviewed. COMPARISON:No prior studies for comparison. FINDINGS: The common femoral, superficial femoral and popliteal veins demonstrate normal respiratory variation, augmentation and compressibility. Color flow is also seen within the posterior tibial, pe roneal, greater saphenous and profunda veins. IMPRESSION: 1: No lower extremity deep venous thrombosis. Reviewed, dictated and finalized at location A.
--- NOTE | ~2021-05-06 | CT_ITS ---
EXAMINATION: CT abdomen pelvis w con DATE: 05/06/2021 17:08 INDICATION: Hepatomegaly. Loss of appetite. Abnormal liver function tests. TECHNIQUE: Computed tomography (CT) of the abdomen and pelvis was performed without intravenous contr ast. Automated exposure control and iterative reconstruction technique were employed. The dose-length product was 268.03 mGy-cm. COMPARISON: None. FINDINGS: The visualized portions of the lung bases demonstrate small pleural effusions. There is mil d atelectasis in the lower lobes. There is mild radiation fibrosis in peripheral right middle lobe. T he heart size is normal. No pericardial effusion. There are coronary artery calcifications. There is a large hiatal hernia containing stomach, colon, and pancreas. There is a 6 mm cyst in the liver. The gallbladder is normal. Calcifications in the spleen are consistent with old granulomatous disease. T he adrenal glands are normal. There is a 9 mm cyst in left kidney. There is moderate right hydronephr osis with urothelial enhancement. There is a delayed right-sided contrast nephrogram. There are calci fied fibroids in the uterus. There is diverticulosis of the colon without evidence of diverticulitis. The appendix is not visualized. There is wall thickening of ascending colon with adjacent fat strand ing. There are no pathologically enlarged lymph nodes. There is physiologic fluid in the pelvis. Ther e is lumbar dextroscoliosis and severe spondylosis. There is a burst fracture of L1. There is a chron ic compression fracture of T12. IMPRESSION: 1. Small pleural effusions. 2. Large hiatal hernia containing stomach, colon, and pancreas. 3. Moderate right hydronephrosis with urothelial enhancement. Correlate with urinalysis for urinary t ract infection. 4. Wall thickening of ascending colon with adjacent fat stranding, which may be inflammation such as diverticulitis. Reviewed, dictated and finalized at location A. IMPRESSION: 1. Small pleural effusions. 2. Large hiatal hernia containing stomach, colon, and pancreas. 3. Moderate right hydronephrosis with urothelial enhancement. Correlate with ur inalysis for urinary tract infection. 4. Wall thickening of ascending colon with adjacent fat stranding, which may be inflammation such as diverticulitis.
--- NOTE | ~2021-05-06 | XR_ITS ---
EXAMINATION: XR barium swallow modified DATE: 05/08/2021 13:53 INDICATION: Witnessed choking episode. TECHNIQUE: The patient was given barium-containing material of multiple consistencies to swallow by t tashia speech pathologist while I performed fluoroscopy. Fluoroscopy exposure time was 1.7 minutes. The n umber of fluoroscopy images saved to the PACS was 1. Dose-area product was 1.176 Gy-cm^2. FINDINGS: There is no laryngeal penetration or aspiration. IMPRESSION: 1. No laryngeal penetration or aspiration. 2. Please refer to the speech therapy report for recommendations. Reviewed, dictated and finalized at location A.
[2021-05-06 15:54] LABS: Basophils Absolute Auto 0.1 K/mm3 (0.0-0.1); Basophils Percent Auto 0.4 % (0.2-1.2); Hematocrit 37.5 % (37.0-47.0); Hemoglobin 12.3 g/dL (12.0-15.0); Immature Granulocyte Absolute 0.14 K/mm3 (0.00-0.031); Immature Platelet Fraction Pct 4.8 % (0.9-11.2); Lymphocytes Absolute Auto 1.45 K/mm3 (0.9-3.2); Lymphocytes Percent Auto 10.4 % (18.3-44.2); Mean Corpuscular HGB Conc 32.8 g/dl (32-36); Mean Corpuscular Hemoglobin 32.2 pg (26-34); Mean Corpuscular Volume 98.2 fl (80-100); Mean Platelet Volume 12.1 fl (7.4-10.4); Monocytes Absolute Auto 1.5 K/mm3 (0.1-0.6); Monocytes Percent Auto 10.9 % (2.6-8.5); Neutrophils Absolute Auto 10.8 K/mm3 (1.3-6.7); Neutrophils Percent Auto 77.3 % (45.5-73.1); Nucleated Red Blood Cells Absolute Auto 0.6 K/mm3 (0.0-0.012); Nucleated Red Blood Cells Perc 4.5 % (0.0-0.2); Platelet Count Result 73 k/mm3 (150-375); Red Blood Count 3.82 M/mm3 (4.2-5.4); Red Cell Distribution Width 18.6 % (11.5-14.5)
[2021-05-06 16:15] LABS: Alanine Aminotransferase 129 U/L (4-35); Albumin Level 3.7 g/dL (3.5-5.1); Alkaline Phosphatase 586 U/L (38-126); Anion Gap 11 mmol/L (8-16); Aspartate Amino Transferase 150 U/L (14-36); Bilirubin,Total 3.1 mg/dL (0.2-1.3); Blood Urea Nitrogen 26 mg/dL (7-17); Calcium 8.3 mg/dL (8.4-10.2); Carbon Dioxide 24 mmol/L (22-30); Chloride 102 mmol/L (98-107); Estimated CRCL calculation 28 ml/min; Estimated Glomerular Filt Rate 48; Glucose 89 mg/dL (65-110); Potassium 3.9 mmol/L (3.4-5.0); Sodium 137 mmol/L (137-145)
[2021-05-06 16:26] LABS: Lipase 181 U/L (23-300)
[2021-05-06 17:46] LABS: Add Urine Microscopic? YES; Appearance Urine Cloudy (Clear); Bacteria Urine Trace /hpf; Bilirubin Urine 1+ (Negative); Blood Urine 1+ (Negative); Color Urine Amber (Yellow); Glucose Urine UA Negative (Negative); Ketones Urine Negative (Negative); Leukocyte Esterase Ur 3+ LEU/UL (Negative); Mucus Urine Rare /lpf; Nitrate Urine Negative (Negative); Protein Urine 2+ mg/dL (Negative); Specific Grav Ur 1.018 (1.001-1.035); Squamous Epithelial Cell Urine Few /hpf (Few); WBC Urine >75 /hpf
--- NOTE | 2021-05-06 18:14 | ED.GENADULT ---
HPI - General Adult General Chief complaint: Unspecified Stated complaint: FEEL DEHYDRATED Time Seen by Provider: 05/06/21 15:09 Source: patient and family Mode of arrival: ambulatory Limitations: no limitations History of Present Illness HPI narrative: 81-year-old female Generally in good health, hypertension, gout Here because she feels dehydrated Complains of about a 2-week history of poor appetite, some nausea, constipation, dark urine She does not have a fever or any dysuria or urinary frequency She denies abdominal pain She has not had a fever No chest pain or cough or other respiratory symptoms Onset (ago): day(s) Related Data Home Medications Medication Instructions Recorded Confirmed calcium carbonate 600 mg calcium 600 mg PO BID 10/14/19 01/27/21 (1,500 mg) tablet ergocalciferol (vitamin D2) 1,250 1,250 mcg PO [id number] cap 10/14/19 01/27/21 mcg (50,000 unit) capsule Systane (PF) 1 drp EACH EYE TID 11/09/20 01/27/21 vitamins A,C,F-jqar-nmnfpu 2 tablet PO BID 11/09/20 01/27/21 colchicine 0.6 mg capsule 0.6 mg PO .PRN cap 12/29/20 01/27/21 ketoconazole 2 % topical cream g TOPICAL 01/27/21 01/27/21 Allergies Allergy/AdvReac Type Severity Reaction Status Date / Time adhesive tape Allergy Intermediate RED/RASH Verified 01/27/21 10:59 Review of Systems Review of Systems: All systems reviewed & are unremarkable except as noted in HPI and below Constitutional: Constitutional: Reports no additional constitutional complaints, Reports anorexia, Denies chills, Reports fatigue, Denies fever(s) and Denies headache(s) Eyes: Eyes: Reports no additional eye complaints and Denies change in vision ENT: Denies headache(s) and Denies sore throat Cardiovascular: Cardiovascular: Denies chest pain and Denies dyspnea Respiratory: Respiratory: Denies cough and Denies dyspnea Gastrointestinal: Gastrointestinal: Denies abdominal pain, Denies melena, Denies bloating, Reports constipation, Reports early satiety, Reports dyspepsia, Denies diarrhea, Reports nausea, Denies odynophagia and Denies vomiting Genitourinary: Genitourinary: Denies urinary frequency, Denies nocturia, Denies dysuria, Reports urinary incontinence and Reports other Musculoskeletal: Musculoskeletal: Denies deformity, Denies arthralgias, Denies joint swelling and Denies numbness Integumentary/Breasts: Skin/Breast: Denies rash and Denies wounds Neurologic: Denies headache(s), Denies focal weakness and Denies numbness Psychiatric: Psychiatric: Reports no additional psychiatric complaints Endocrine: Endocrine: Reports no additional endocrine complaints Hematologic/Lymphatic: Hematologic/Lymphatic: Reports no additional hematologic/lymphatic complaints Allergic/Immunologic: Allergic/Immunologic: Reports no additional allergic/immunologic complaints [facility] Past Medical History Medical History Anxiety and depression (~1999) Benign essential hypertension (~1989) Breast cancer in female (~11/2003) 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 She wishes to be a DNR. Her PCP is Dr. Jack. Smoking packs per day: 1 Smoking cigarettes
[2021-05-06 18:16] LABS: Hepatitis B Surface Antigen Negative (Negative)
[2021-05-06 18:21] LABS: HAV RESULT Negative (Negative); Hepatitis B Core IgM Result Negative (Negative)
[2021-05-06 18:33] LABS: Hepatitis C Virus Antibody Negative (Negative)
--- NOTE | 2021-05-06 18:50 | PM.IMHP ---
H&P: HPI History of Present Illness Date/Time: 05/06/21 18:50 Chief Complaint: Poor appetite, weakness. Narrative: This is a very pleasant 81-year-old female with hypertension, aortic stenosis, gout, and history of breast cancer presented to the emergency department earlier today via private vehicle from home for evaluation of poor appetite and weakness. She reports a gradual onset of generalized malaise beginning a couple of weeks ago with poor appetite, nausea, and fatigue. She feels like she has no energy and suspects that she is dehydrated due to not eating or drinking much. Her urine is much darker than normal, almost brown in color, and she has also noticed mild increase in urinary incontinence and foul-smelling urine though she has no significant dysuria. She reports having 2 small, hard stools over the past several days that were dark brown in color which she also attributes to not eating much the last couple of weeks. Labs drawn today indicate that she is indeed dehydrated. LFTs were elevated, prompting a CT of the abdomen and pelvis which showed a large hiatal hernia containing stomach, colon, and pancreas; moderate right hydronephrosis with urothelial enhancement; and wall thickening of the ascending colon with adjacent fat stranding. She had no knowledge of that hiatal hernia however it has been noted on imaging dating back many years. She has no history of hepatitis, pancreatitis, or gallbladder disease. In fact she has no abdominal pain or epigastric discomfort whatsoever. She has not had issues with GERD or dysphagia. No personal history or known exposure to hepatitis. She has not traveled recently and denies acetaminophen use. No recent additions to her medication regimen. She denies fever, chills, sweats, headache, chest pain, pleuritic pain, palpitations, shortness of breath (daughter has noticed that she seems a bit short of breath with activity recently and even today while talking), cough, exposure to COVID-19, diarrhea, rash, pruritus, melena, and hematochezia. Review of Systems Review of Systems: 12 systems were reviewed with pertinent positives and negatives as per HPI. No sinus congestion, rhinorrhea, otalgia, or odynophagia. No dysphagia. Denies early satiety. No abdominal bloating. She thinks she has lost some weight in the last 2 weeks due to not eating well but nothing drastic. She denies pleuritic pain and palpitations. No history of thyroid disease. No history of venous thromboembolism. She has been having issues with back pain and recently completed 6 weeks of physical therapy Without much benefit. Except as documented, all other systems were reviewed and are negative. [facility] Past Medical History Medical History (Updated 05/06/21 @ 22:20 by Ca Morse PA-C) Anxiety and depression Benign essential hypertension Breast cancer in female (11/2003) Left breast cancer in 2003. Right breast cancer 2006. Cerebral hemorrhage following injury (07/2018) Traumatic subarachnoid hemorrhage. Diverticulosis Gout Iron deficiency anemia Moderate aortic stenosis Osteoporosis Psoriasis Rectal bleeding Colonoscopy in 10/2020 showed diverticulosis. Urinary incontinence Surgical History Surgical History (Updated 05/06/21 @ 22:12 by Ca Morse PA-C) History of bilateral cataract extraction History of bilateral mastectomy Left breast 12/03/2003. Right breast 11/21/2011. History of colonoscopy with polypectomy Family History Family History Father Diabetes mellitus Grandparent Cerebrovascular accident Mother Family history of lung cancer Social History Social History (Updated 05/06/21 @ 22:14 by Ca Morse PA-C) Social History: The patient lives in [place] with her , Connor. She has a remote smoking history. No alcohol or illicit substance abuse. She designates her Connor and her daughter Jeanne Salazar as her roque
--- NOTE | 2021-05-06 19:42 | ADMGEN ---
This patient, Nicole Peña, was admitted to Medical Room 348-01. Patient/family oriented to hospital policies and general routines including ID bracelet, bed and alarms, visiting hours, pain management, procedures, bathroom and other care routines, personal items, smoking policy, room service/diet, and visiting hours. Information on how to activate the Rapid Response Team has been discussed. Patient/Family are encouraged to report perceived risks to care and to ask questions if they do not understand what they are told or what they should do.
[2021-05-06] MEDS: LACTATED RINGERS 1,000 ML 999 ML IV CONT (19:48)
[2021-05-06] MEDS: ONDANSETRON INJ 4 MG/2 ML VIAL IV PUSH (20:22)
[2021-05-06] MEDS: FAMOTIDINE 20 MG/2 ML VIAL IV PUSH (20:25)
[2021-05-06] MEDS: LACTATED RINGERS 1,000 ML 125 ML IV CONT (21:00)
[2021-05-06 22:46] LABS: INR 1.1; Prothrombin Time 14.4 Seconds (11.1-14.7)
[2021-05-06 22:47] LABS: Partial Thromboplastin Time 27.7 SECONDS (22.3-36.8)
--- NOTE | 2021-05-06 22:52 | ECG_ITS ---
Measurements Intervals [place] Rate: 122 P: 35 [place]: 128 QRS: 257 QRSD: 133 T: 46 QT: 351 QTc: 501 Interpretive Statements SINUS TACHYCARDIA RIGHT BUNDLE BRANCH BLOCK BASELINE ARTIFACT- II, III, AVF, V3 ABNORMAL ECG Electronically Signed On 05-07-2021 6:56:08 CDT by Ashok Sainz D.O.
[2021-05-06 22:57] LABS: Lactic Acid Reflex 2.6 mmol/L (0.7-2.1)
[2021-05-06 23:10] LABS: D Dimer 7.61 ug/mL (<0.48)
[2021-05-06 23:11] LABS: Creatine Kinase 130 U/L (30-135)
[2021-05-06 23:26] LABS: CRP 8.8 mg/dL (<1.0)
[2021-05-06 23:34] LABS: Acetaminophen < 10 ug/mL (10-30)
[2021-05-07] VITALS (10 sets, daily range): BP systolic 107–148; BP diastolic 54–80; PULSE 83–121; RESP 16–24; TEMP 35.8–36; O2SAT 92–95
[2021-05-07] MEDS: SODIUM CHLORIDE 0.9% IV 1,600 ML/1,000 ML BAG 999 ML IV CONT ×2 (01:15→02:26)
[2021-05-07 01:31] LABS: Reflex Lactic Acid Yes or No Add Lactic
--- NOTE | 2021-05-07 01:55 | PC.NURSE ---
Patient to CT via bed
[2021-05-07 02:05] LABS: Lactic Acid 1.4 mmol/L (0.7-2.1)
--- NOTE | 2021-05-07 02:18 | PC.NURSE ---
Patient returned to room from CT via bed.
[2021-05-07 07:07] LABS: Hemoglobin 10.1 g/dL (12.0-15.0); Immature Platelet Fraction Pct 4.5 % (0.9-11.2); Mean Corpuscular HGB Conc 32.6 g/dl (32-36); Mean Corpuscular Hemoglobin 32.5 pg (26-34); Mean Corpuscular Volume 99.7 fl (80-100); Mean Platelet Volume 10.9 fl (7.4-10.4); Platelet Count Result 57 k/mm3 (150-375); Red Blood Count 3.11 M/mm3 (4.2-5.4); Red Cell Distribution Width 18.9 % (11.5-14.5); White Blood Count 23.1 K/mm3 (4.5-10.0)
[2021-05-07 07:19] LABS: Alanine Aminotransferase 96 U/L (4-35); Albumin Level 2.6 g/dL (3.5-5.1); Alkaline Phosphatase 428 U/L (38-126); Anion Gap 9 mmol/L (8-16); Aspartate Amino Transferase 102 U/L (14-36); Bilirubin,Total 2.3 mg/dL (0.2-1.3); Blood Urea Nitrogen 20 mg/dL (7-17); Calcium 7.4 mg/dL (8.4-10.2); Carbon Dioxide 21 mmol/L (22-30); Chloride 108 mmol/L (98-107); Estimated CRCL calculation 28 ml/min; Estimated Glomerular Filt Rate 48; Glucose 75 mg/dL (65-110); Lipase 140 U/L (23-300); Potassium 3.5 mmol/L (3.4-5.0); Sodium 138 mmol/L (137-145)
[2021-05-07 08:04] LABS: Band Neutrophils Percent 2 % (0-6); Lymphocytes Absolute Manual 0.92 K/mm3 (1.1-4.5); Monocytes Absolute Manual 0.92 K/mm3 (0.1-0.90); Monocytes Percent Manual 4 % (3-9); Neutrophils Absolute Manual 21.25 K/mm3 (1.7-7.2); Neutrophils Percent Manual 90 % (46-73); Nucleated Red Blood Cells 3 %; Total Cells Counted 100
[2021-05-07 08:33] LABS: Hypochromasia 1+ (NORMAL)
[2021-05-07] MEDS: ARTIFICIAL TEARS OPHTH SOLN 15 ML BOTTLE 1 DROP EACH EYE ×3 (09:57→17:24)
[2021-05-07] MEDS: FAMOTIDINE 20 MG/2 ML VIAL IV PUSH ×2 (09:57→20:04)
[2021-05-07] MEDS: dilTIAZem HCL 60 MG TABLET 120 MG PO (09:57)
[2021-05-07] MEDS: VENLAFAXINE HCL XR 75 MG CAP.ER.24H PO (09:57)
[2021-05-07] MEDS: KCL 20 MEQ/D5/0.9% SOD CHL 1,000 ML 100 ML IV CONT ×2 (10:42→23:58)
--- NOTE | 2021-05-07 11:48 | WPDGICN ---
Assessment and Plan Assessment and plan (1) Elevated liver function tests: Code(s): R79.89 - Other specified abnormal findings of blood chemistry <Temi Bashir APRN - Last Filed: 05/07/21 12:26> Status: Acute <Temi Bashir APRN - Last Filed: 05/07/21 12:26> Assessment and Plan: GI Consultation Nahum Bashir SENIOR SUPPORT ANALYST for Dr. Husain 05/07/21 This is a very pleasant 81-year-old female with hypertension, aortic stenosis, gout, history of breast cancer s/p double mastectomy, diverticulosis, hemorrhoids, brain hemorrhage, CHARLES, osteoporosis, anxiety/depression, loop recorder placement, and bilateral cataract repair. She presented to the emergency department earlier today due to poor appetite, nausea with no vomiting and increasing weakness over the last several weeks. She states day prior to ER arrival she had slept for 24 hours. She states her daughter thought her eyes looked yellow yesterday. She denies hx of ETOH abuse, IV drug use, excessive Tylenol use, new medications or tattoos. She does report dark urine with urinary frequency over 1 month but no dysuria, denies acholic stools. She denies any confusion. She does report hard stools and will skip days in between bowel movements. She just recently starting taking Miralax daily with minimal improvement. She has never been told she had elevated LFT before. Patient denies nausea or vomiting, trouble swallowing, bloating, early satiety, heartburn, diarrhea, rectal bleeding or melena. Patient denies fever, jaundice, scleral icterus, dark urine, light stool, itching, hot or cold intolerance, chest pain, shortness of breath at rest, hematuria, dysuria, new cough or visual changes, easy bruising, tingling of the skin, bone pain or tremors. No history of endocarditis, rheumatic fever, dental prophylaxis, heart valve surgery, or bleeding disorder. Allergies: Adhesive Tape Medications: alendronate, allopurinol, calcium carbonate, colchicine dilitazem, vit d2, lidocaine, losartan, miralax, velafaxine, vit A-C-E, and zinc Social history/Family History:The patient lives in [place] with her , Connor. She has a remote smoking history. No alcohol or illicit substance abuse. No family hx of CRC, IBD, Gastric maligancies, or chronic liver disease. Physical exam: No lower extremity edema, jaundice, spider angioma, palmar erythema. Skull is normocephalic atraumatic. Sclera are non-icteric. Oropharynx is clear. Neck is supple without thyromegaly. Lungs are clear. Heart is rate and rhythm regular. S1 and S2 normal. Normal active bowel sounds. mild epigastric tenderness and abdomen is soft with slight distension but was not tight. Abd is non-rigid, non-distended without hepatosplenomegaly or masses. She does have bulging flanks. No guarding. Rectal is deferred. Neuro is conscious and alert ?3. Labs: T bili 3.1, AST 150, ALT 129, A/p 586 wbc 23.2, hgb 10, hct 30, platelets 01058, INR 1.1 D-dimer 7.61 Imaging: CT abd/pelvis IMPRESSION: 1. Small pleural effusions. 2. Large hiatal hernia containing stomach, colon, and pancreas. 3. Moderate right hydronephrosis with urothelial enhancement. Correlate with urinalysis for urinary tract infection. 4. Wall thickening of ascending colon with adjacent fat stranding, which may be inflammation such as diverticulitis. RUQ abdominal US: Gallbladder polyps with adenomyomatosis. Assessment and plan: A. Elevated LFTs/Abnormal Imaging-Digestive/Abnormal Imaging-Biliary/Leukocytosis/Thrombocytopenia/Fatigue/Decreased appetite -LFT elevated with mixed hepatic/cholestatic pattern but no evidence of biliary obstruction and normal appearing liver; this could be all reactive secondary infectious or inflammatory process -Currently being treated for UTI with evidence of Leukocytosis -evidence of right hydronephrosis and urothelial enhancement on imaging -CT showed large hiatal hernia containing stomach, colon and pancreas with normal luisito
--- NOTE | 2021-05-07 14:42 | PM.CNGS ---
Assessment and Plan Assessment and plan (1) Large hiatal hernia: Code(s): K44.9 - Diaphragmatic hernia without obstruction or gangrene Status: Chronic Assessment and Plan: Discussed with Dr. Husain. Very large hiatal hernia but appears to be asymptomatic. Most of these have been present for a long time. No evidence of obstruction on CT scan or by history. Doubt this is the cause of her present illness. (2) Abnormal urinalysis: Code(s): R82.90 - Unspecified abnormal findings in urine Status: Acute Assessment and Plan: Right hydronephrosis with enhancement on CT scan associated with abnormal UA and pyuria. Agree with ceftriaxone antibiotics. At present infection due to urinary source seems most likely. (3) Thrombocytopenia: Code(s): D69.6 - Thrombocytopenia, unspecified Status: Acute Assessment and Plan: Etiology unclear, could be associated with infection. (4) Leukocytosis: Code(s): D72.829 - Elevated white blood cell count, unspecified Status: Acute Assessment and Plan: Another abnormality suggesting infection. (5) Elevated liver function tests: Code(s): R79.89 - Other specified abnormal findings of blood chemistry Status: Acute Assessment and Plan: Etiology unclear but improved this morning. Continue to monitor. Gallbladder ultrasound showed polyps but no signs of cholecystitis. This would not cause abnormal liver enzymes. History of Present Illness Consult details Consult date: 05/07/21 Narrative: Patient is an 81-year-old woman who has not been feeling well for couple of weeks. She came to the emergency room as she had been so tired and had actually slept for over 24 hours. She was achy and weak and very fatigued. Evaluation in the emergency room was carried out.She clinically appeared to be dehydrated but her BUN was 26 and creatinine was elevated at 1.1. She was not polycythemic but white count [place] [address] and platelets were low at 73,000 three thousand. Her UA showed pyuria with a few bacteria. Her liver enzymes were elevated. Hepatitis panel has been done and was negative. She had a CT scan of the abdomen and pelvis which showed an extremely large hiatal hernia containing stomach colon and pancreas. There was also moderate right hydronephrosis with enhancement. I was asked to see the patient regarding her abnormal CT scan and the possibility of abdominal disease as the source of her present illness. The patient was fine more than 2 weeks ago. She did not know she had a hiatal hernia. She denies any trouble swallowing or postprandial pain. She has not had any nausea or vomiting. She did have some back pain but this was after falling several weeks ago and improved with time. Back pain is not associated at all with eating. While her appetite has been poor recently, she has not had any difficulties with eating. No vomiting no sensations of reflux. There was a chest x-ray from January of 2000 that showed a 6.5 cm hiatal hernia but really no other imaging to compare the present CT with. Review of Systems Review of Systems: All systems reviewed & are unremarkable except as noted in HPI and below Constitutional: Constitutional: Reports as per HPI, Denies chills, Reports daytime sleepiness, Denies fever(s), Reports poor appetite and Reports weakness Cardiovascular: Cardiovascular: Denies chest pain, Denies diaphoresis, Denies dyspnea and Denies paroxysmal nocturnal dyspnea Respiratory: Respiratory: Denies chest congestion, Denies cough and Denies dyspnea Gastrointestinal: Gastrointestinal: Reports as per HPI, Denies abdominal pain, Reports constipation, Denies nausea and Denies vomiting Integumentary/Breasts: Skin/Breast: Denies lesions and Denies rash [facility] Past Medical History Medical History (Updated 05/07/21 @ 15:04 by Zane Uriarte MD) Anxiety and depression Benign essential hypertension Breast cancer in female (
--- NOTE | 2021-05-07 16:58 | PM.IMPN ---
Progress Note: A&P Assessment and Plan (1) Pyelonephritis of right kidney: Code(s): N12 - Tubulo-interstitial nephritis, not specified as acute or chronic Status: Acute Assessment and Plan: - UTI with wbc's going up from 14k to 23k, will keep Zosyn for now and re-evaluate tomorrow. She may be deescalated to Rocephin for UTI if leukocytosis improves, otherwise will have to consider carbapenem for complicated pyelonephritis - complicated urinary tract infection with right hydronephrosis with enhancement of bladder on CT scan - Zofran for nausea - with decreased p.o. intake will continue D5 NS today - lactic acid normalized (2) Large hiatal hernia: Code(s): K44.9 - Diaphragmatic hernia without obstruction or gangrene Status: Chronic Assessment and Plan: - asymptomatic large hiatal hernia containing stomach, colon and Pancreas, reviewed by surgeon (3) Transaminitis: Code(s): R74.01 - Elevation of levels of liver transaminase levels Status: Acute Assessment and Plan: - unclear etiology at this time it could be reactive to infection, will trend. LFTs are starting to down trend. - appreciate GI and surgery recommendations recommendations - normal lipase - Gallbladder ultrasound shows polyps with adenomyomatosis but no cholecystitis - reviewed home medications (4) Loss of appetite: Code(s): R63.0 - Anorexia Status: Acute Assessment and Plan: - patient has no interest in eating, no nausea or dysphasia issues. We discussed starting medication, will start Remeron 15 mg q.h.s.. (5) Thrombocytopenia: Code(s): D69.6 - Thrombocytopenia, unspecified Status: Acute Assessment and Plan: unclear etiology, will trend. may be secondary to infection Additional Plan # Chronic conditions - anxiety/depression: home venlafaxine - hypertension: Losartan, Cardizem - Gout: Allopurinol Diet: Regular DVT prophylaxis: GI prophylaxis: Pepcid Code status: Full code Disposition: Pending clinical course, likely home Time Spent With Patient Time with patient: 25 - 35 minutes Subjective Date/time seen: 05/07/21 16:58 Patient examined. she complains of decreased interest in eating. She denies nausea or difficulty swallowing. she cannot complaining that she would like to eat. She did not like ensures. appears that she has been having decreased p.o. intake for the last 3 weeks however a more recent symptoms of weakness is over last 4 days. We discussed starting a medication for appetite stimulant, will start mirtazapine. daughter updated bedside. Review of Systems Review of Systems: All systems reviewed & are unremarkable except as noted in HPI and below Exam Narrative: - GENERAL: pleasant frail older woman in no acute distress breathing comfortably on room air - EYES: EOMI. Anicteric. - HENT: Moist mucous membranes. - LUNGS: Clear to auscultation bilaterally, no wheezing, rhonchi, or rales. - CARDIOVASCULAR: Regular rate and rhythm. systolic ejection murmur - ABDOMEN: Soft, non-tender and non-distended. No palpable masses. bowel sounds present. - EXTREMITIES: No edema. Peripheral pulses 2+. Non-tender. - NEUROLOGIC: No focal neurological deficits. CN II-XII grossly intact. - PSYCHIATRIC: Awake, Alert and oriented. Appropriate mood and affect. - SKIN: No rashes or lesions. Warm. - LYMPH: No cervical lymphadenopathy. Objective Data Vital Signs Vital Signs: Vital Signs - 24 hr 05/06/21 17:12 05/06/21 17:13 05/06/21 17:15 Temperature Pulse Rate 109 H 109 H 110 H Respiratory Rate 26 H 24 H 30 H Blood Pressure 160/83 H Pulse Oximetry 97 96 97 05/06/21 20:00 05/06/21 23:17 05/07/21 00:00 Temperature 36.8 C Pulse Rate 118 H 123 H 121 H Respiratory Rate 18 Blood Pressure 190/98 H Pulse Oximetry 98 05/07/21 01:35 05/07/21 04:00 05/07/21 05:17 Temperature 36.0 C L Pulse Rate 116 H 113 H 118 H Respiratory Rate 18 Blood
[2021-05-07] MEDS: polyethylene glycoL 3350 17 GM POWD.PACK PO (17:24)
[2021-05-07] MEDS: MIRTAZAPINE 15 MG TABLET PO (20:04)
[2021-05-08] VITALS (14 sets, daily range): BP systolic 152–172; BP diastolic 72–83; PULSE 95–120; RESP 20–26; TEMP 36.3–36.5; O2SAT 96–98; BMI 24.6
[2021-05-08] MEDS: ALBUTEROL SULFATE NEB 2.5 MG/3 ML INH INHALATION (04:45)
[2021-05-08 07:54] LABS: Hematocrit 34.2 % (37.0-47.0); Immature Platelet Fraction Pct 4.3 % (0.9-11.2); Mean Corpuscular HGB Conc 32.2 g/dl (32-36); Mean Corpuscular Volume 102.7 fl (80-100); Mean Platelet Volume 11.2 fl (7.4-10.4); Platelet Count Result 67 k/mm3 (150-375); Red Blood Count 3.33 M/mm3 (4.2-5.4); Red Cell Distribution Width 19.3 % (11.5-14.5); White Blood Count 11.9 K/mm3 (4.5-10.0)
[2021-05-08 08:06] LABS: Anion Gap 8 mmol/L (8-16); Blood Urea Nitrogen 17 mg/dL (7-17); Calcium 7.8 mg/dL (8.4-10.2); Carbon Dioxide 19 mmol/L (22-30); Chloride 112 mmol/L (98-107); Estimated CRCL calculation 30 ml/min; Estimated Glomerular Filt Rate 53; Glucose 116 mg/dL (65-110); Magnesium 1.6 mg/dL (1.6-2.3); Potassium 3.6 mmol/L (3.4-5.0); Sodium 139 mmol/L (137-145)
[2021-05-08] MEDS: LOSARTAN POTASSIUM 100 MG TABLET PO (08:20)
[2021-05-08] MEDS: dilTIAZem HCL 60 MG TABLET 120 MG PO (08:20)
[2021-05-08] MEDS: VENLAFAXINE HCL XR 75 MG CAP.ER.24H PO (08:20)
[2021-05-08] MEDS: allopurinoL 300 MG TABLET PO (08:20)
[2021-05-08] MEDS: ARTIFICIAL TEARS OPHTH SOLN 15 ML BOTTLE 1 DROP EACH EYE ×3 (08:20→16:54)
[2021-05-08] MEDS: FAMOTIDINE 20 MG/2 ML VIAL IV PUSH ×2 (08:20→20:35)
[2021-05-08] MEDS: polyethylene glycoL 3350 17 GM POWD.PACK PO ×2 (08:21→16:54)
[2021-05-08 08:49] LABS: Eosinophils Absolute Manual 0.35 K/mm3 (0.02-0.5); Eosinophils Percent Manual 3 % (0-4); Lymphocytes Absolute Manual 1.07 K/mm3 (1.1-4.5); Metamyelocytes Percent 1 %; Monocytes Absolute Manual 0.83 K/mm3 (0.1-0.90); Monocytes Percent Manual 7 % (3-9); Neutrophils Percent Manual 80 % (46-73); Nucleated Red Blood Cells 13 %; Total Cells Counted 100
[2021-05-08 08:52] LABS: Hypochromasia 1+ (NORMAL); Platelet Estimate Decreased (Adequate)
[2021-05-08 08:53] LABS: Anisocytosis 1+ (NORMAL); Polychromasia 1+ (NORMAL)
--- NOTE | 2021-05-08 09:17 | PCOTNOTE ---
Attempted OT evaluation, per RN hold for morning due to increased O2 needs and increased heart rate, will follow and attempt in PM.
[2021-05-08] MEDS: KCL 20 MEQ/D5/0.9% SOD CHL 1,000 ML 100 ML IV CONT (09:26)
--- NOTE | 2021-05-08 09:35 | PCPTNOTE ---
PT on hold per RN due to increased O2 needs and increased HR. Will follow.
--- NOTE | 2021-05-08 10:40 | PC.NURSE ---
called to pt room by [employer] RENTAL CLERK, pt visibly choking on water, red in face and gasping for air, aspiration noted, pt sat up in bed and did recover, audible wheezing continues, will continue to monitor
[2021-05-08] MEDS: MAGNESIUM SULF 2 GM/WATER 50ML 2 GM/50 ML BAG IVPB (10:43)
[2021-05-08] MEDS: ALBUTEROL SULFATE NEB 2.5 MG/0.5 ML INH INHALATION (11:44)
[2021-05-08] MEDS: IPRATROPIUM BR 0.02% INH SOLN 0.5 MG/2.5 ML VIAL INHALATION (11:44)
[2021-05-08] MEDS: FUROSEMIDE 20 MG TABLET PO (12:16)
--- NOTE | 2021-05-08 12:22 | PCSTNOTE ---
Please refer to the Bedside Swallow Evaluation in the EMR. Please note, silent aspiration cannot be ruled out at bedside.
--- NOTE | 2021-05-08 12:31 | PM.PNGS ---
Progress Note: A&P Assessment and Plan (1) Abnormal urinalysis: Code(s): R82.90 - Unspecified abnormal findings in urine Status: Acute Assessment and Plan: Right hydronephrosis with enhancement on CT scan associated with abnormal UA and pyuria. Continue IV Ceftriaxone. This seems to be the most likely source of infection. (2) Large hiatal hernia: Code(s): K44.9 - Diaphragmatic hernia without obstruction or gangrene Status: Chronic Assessment and Plan: Very large hiatal hernia containing stomach, colon, and pancreas without evidence of obstruction. This is asymptomatic and not felt to be the cause of her present illness. (3) Thrombocytopenia: Code(s): D69.6 - Thrombocytopenia, unspecified Status: Acute Assessment and Plan: Unclear etiology. Platelets at 67,000 today. Secondary to infection? Monitor labs. (4) Leukocytosis: Code(s): D72.829 - Elevated white blood cell count, unspecified Status: Acute Assessment and Plan: Improving, WBC down 11,900 today. Continue IV abx for urinary tract infection. Monitor labs. (5) Elevated liver function tests: Code(s): R79.89 - Other specified abnormal findings of blood chemistry Status: Acute Assessment and Plan: Unclear etiology. LFTs continue to trend down. Monitor labs. Additional Plan Discussed plan of care with Dr. Uriarte. Subjective Subjective Date/Time Seen: 05/08/21 09:31 Patient reports: no new complaints, tolerating a regular diet, flatus and afebrile Interval history: Patient seen today with no specific complaints. She denies any abdominal pain, vomiting, or reflux sensation. Review of Systems Review of Systems: All systems reviewed & are unremarkable except as noted in HPI and below Exam Const: General: comfortable, no acute distress, alert and awake Orientation/consciousness: patient oriented x3 GI: Inspection: non-distended GI Palp: Yes Soft to palpation and No Tenderness to palpation present (GI) Auscultation: normal bowel sounds Skin: General skin exam: normal color Neuro: General: moves all extremities and no focal motor deficits Extrem: General: no clubbing, cyanosis or edema Psych: Mental Status: mental status grossly normal Judgement: Fair judgement present (Psych) Objective Data Vital Signs Vital Signs: Vital Signs - 24 hr 05/07/21 14:00 05/07/21 16:00 05/07/21 20:00 Temperature 96.5 F L Pulse Rate 85 83 95 Respiratory Rate 24 H Blood Pressure 107/54 L Pulse Oximetry 92 05/07/21 20:36 05/08/21 00:00 05/08/21 04:00 Temperature 96.7 F L Pulse Rate 96 104 H 112 H Respiratory Rate 16 Blood Pressure 143/75 H Pulse Oximetry 92 05/08/21 04:25 05/08/21 04:47 05/08/21 04:54 Temperature Pulse Rate 120 H 103 H 102 H Respiratory Rate 24 H 20 Blood Pressure Pulse Oximetry 97 05/08/21 06:00 Temperature 97.7 F Pulse Rate 109 H Respiratory Rate 26 H Blood Pressure 152/83 H Pulse Oximetry 98 Intake/Output Intake/Output: Intake & Output 05/05/21 05/06/21 05/07/21 05/08/21 23:59 23:59 23:59 23:59 Intake Total 1050 3690 1250 Output Total 900 Balance 1050 2790 1250 Meds/Results Medications: Active Medications Generic Name Dose Route Start Last Admin Trade Name Harveyq PRN Reason Stop Dose Admin Allopurinol 300 mg 05/07/21 08:00 05/08/21 08:20 Allopurinol 300 Mg Tablet PO 300 mg DAILY@0800 ROZINA Administration Artificial Tears 1 drop 05/07/21 09:00 05/08/21 12:17 Artificial Tears Ophth Soln 15 Ml Bottle EACH EYE 06/06/21 09:01 1 drop TID ROZINA Administration Diltiazem HCl 120 mg 05/07/21 09:00 05/08/21 08:20 Diltiazem Hcl 60 Mg Tablet PO 06/06/21 09:01 120 mg DAILY ROZINA Administration Famotidine 20 mg 05/06/21 21:00 05/08/21 08:20 Famotidine 20 Mg/2 Ml Vial IV PUSH 20 mg Q12HR ROZINA Administration Ceftriaxone Sodium/Dextrose 1 gm in 50 mls @ 100 mls/hr
--- NOTE | 2021-05-08 12:52 | PCOTNOTE ---
Attempted OT evaluation, per RN hold OT for the day, will follow and attempt tomorrow.
--- NOTE | 2021-05-08 14:08 | PCPTNOTE ---
Attempted PT eval. pt still on hold. Will try again tomorrow.
--- NOTE | 2021-05-08 14:17 | PCSTNOTE ---
Please refer to the Modified Barium Swallow Evaluation in the EMR.
--- NOTE | 2021-05-08 15:53 | WPDGIPROGNO ---
Progress Note: A&P Assessment and Plan (1) Pyelonephritis of right kidney: Code(s): N12 - Tubulo-interstitial nephritis, not specified as acute or chronic Status: Acute Assessment and Plan: on treatment (2) Large hiatal hernia: Code(s): K44.9 - Diaphragmatic hernia without obstruction or gangrene Status: Chronic Assessment and Plan: recommend to eat small portions at time, barium esophagram reviewed still with poor appetite. (3) Thrombocytopenia: Code(s): D69.6 - Thrombocytopenia, unspecified Status: Acute (4) Elevated liver function tests: Code(s): R79.89 - Other specified abnormal findings of blood chemistry Status: Acute Assessment and Plan: probably multifactorial, stable numbers CT scan imaging reviewed Subjective Date/time seen: 05/08/21 15:53 Interval history: no major changes, she is trying to eat small portions otherwise will choke (barium esophagram reviewed, No laryngeal penetration or aspiration). Review of Systems Review of Systems: All systems reviewed & are unremarkable except as noted in HPI and below Exam Const: General: comfortable Other: pleasant elderly HENMT: General nose exam: Normal nares present Eyes: Sclera: sclerae normal Neck: Neck: supple Cardio: Rate: regular rate GI: GI Palp: Yes Soft to palpation, No Tenderness to palpation present (GI) and No Guarding due to palpation present (GI) Auscultation: normal bowel sounds Skin: General skin exam: normal color Neuro: Speech: normal speech Motor exam (neuro): Normal motor muscle tone present throughout Extrem: General: normal to inspection Psych: Mental Status: mental status grossly normal Objective Data Vital Signs Vital Signs: Vital Signs - 24 hr 05/07/21 16:00 05/07/21 20:00 05/07/21 20:36 Temperature 96.7 F L Pulse Rate 83 95 96 Respiratory Rate 16 Blood Pressure 143/75 H Pulse Oximetry 92 05/08/21 00:00 05/08/21 04:00 05/08/21 04:25 Temperature Pulse Rate 104 H 112 H 120 H Respiratory Rate Blood Pressure Pulse Oximetry 97 05/08/21 04:47 05/08/21 04:54 05/08/21 06:00 Temperature 97.7 F Pulse Rate 103 H 102 H 109 H Respiratory Rate 24 H 20 26 H Blood Pressure 152/83 H Pulse Oximetry 98 05/08/21 08:00 05/08/21 11:44 05/08/21 11:57 Temperature Pulse Rate 106 H 112 H 107 H Respiratory Rate 22 H 20 20 Blood Pressure Pulse Oximetry 96 05/08/21 12:00 05/08/21 14:00 Temperature 97.3 F L Pulse Rate 95 98 Respiratory Rate 22 H Blood Pressure 172/72 H Pulse Oximetry 97 Intake/Output Intake/Output: Intake & Output 05/05/21 05/06/21 05/07/21 05/08/21 23:59 23:59 23:59 23:59 Intake Total 1050 3690 1250 Output Total 900 Balance 1050 2790 1250 Meds/Results Medications: Active Medications Generic Name Dose Route Start Last Admin Trade Name Harveyq PRN Reason Stop Dose Admin Allopurinol 300 mg 05/07/21 08:00 05/08/21 08:20 Allopurinol 300 Mg Tablet PO 300 mg DAILY@0800 ROZINA Administration Artificial Tears 1 drop 05/07/21 09:00 05/08/21 12:17 Artificial Tears Ophth Soln 15 Ml Bottle EACH EYE 06/06/21 09:01 1 drop TID ROZINA Administration Diltiazem HCl 120 mg 05/07/21 09:00 05/08/21 08:20 Diltiazem Hcl 60 Mg Tablet PO 06/06/21 09:01 120 mg DAILY ROZINA Administration Famotidine 20 mg 05/06/21 21:00 05/08/21 08:20 Famotidine 20 Mg/2 Ml Vial IV PUSH 20 mg Q12HR ROZINA Administration Ceftriaxone Sodium/Dextrose 1 gm in 50 mls @ 100 mls/hr 05/08/21 11:00 05/08/21 12:16 Rocephin 1 Gm/D5w 50 Ml IVPB 100 mls/hr Q24H ROZINA Administration Losartan Potassium 100 mg 05/07/21 09:00 05/08/21 08:20 Losartan Potassium 100 Mg Tablet PO 100 mg DAILY ROZINA Administration Mirtazapine 15 mg 05/07/21 21:00 05/07/21 20:04 Mirtazapine 15 Mg Tablet PO 15 mg HS ROZIAN Administration Ondansetron HCl 4 mg 05/06/21 18:08
--- NOTE | 2021-05-08 17:21 | PM.IMPN ---
Progress Note: A&P Assessment and Plan (1) Pyelonephritis of right kidney: Code(s): N12 - Tubulo-interstitial nephritis, not specified as acute or chronic Status: Acute Assessment and Plan: WBC improving, de-escalating from zosyn to rocephin, day 2 of antibiotic (2) Loss of appetite: Code(s): R63.0 - Anorexia Status: Acute Assessment and Plan: Started Remeron last night, will continue (3) Transaminitis: Code(s): R74.01 - Elevation of levels of liver transaminase levels Status: Acute Assessment and Plan: Down trending, likely secondary to urinary tract infection (4) Oliguria: Code(s): R34 - Anuria and oliguria Status: Acute Assessment and Plan: Placing Espinal catheter for strict inputs and outputs, will trend (5) Respiratory distress, acute: Code(s): R06.03 - Acute respiratory distress Status: Acute Assessment and Plan: Patient became slightly tachypneic today, with decreased urine output she may be fluid overload with IV fluids overnight. Will give Lasix 20 mg once. (6) Hypertension: Qualifiers: Hypertension type: primary hypertension Qualified Code(s): I10 - Essential (primary) hypertension Code(s): I10 - Essential (primary) hypertension Status: Acute Assessment and Plan: Continue home meds for primary hypertension, will have hydralazine p.r.n. for systolic blood pressure greater than 170. Her hypertension may be related to her stress, will watch closely Additional Plan # Chronic conditions - anxiety/depression: home venlafaxine - hypertension: Losartan, Cardizem, p.r.n. hydralazine - Gout: Allopurinol Diet: Regular DVT prophylaxis: SCDs GI prophylaxis: Pepcid Code status: Full code Disposition: Pending clinical course, likely home Time Spent With Patient Time with patient: 25 - 35 minutes Subjective Date/time seen: 05/08/21 17:21 Patient is a tachypneic and hypertensive. Patient was on IV fluids overnight and urine output was minimal. Net balance was positive 2.[address] Espinal catheter for strict I's and O's. IV fluids have been stopped for fluid overload likely causing her dyspnea. She is given Lasix 1 time dose. With her white count coming down we can transition from Zosyn to Rocephin. If patient decompensates we may need to consider Urology consult for pyelonephritis. However she appears to be improving, will watch her urine output closely. Review of Systems Review of Systems: All systems reviewed & are unremarkable except as noted in HPI and below Exam Narrative: - GENERAL: pleasant frail older woman in slight respiratory distress - EYES: EOMI. Anicteric. - HENT: Moist mucous membranes. - LUNGS: Coarse lungs sounds, tachypnic. some respiratory distress - CARDIOVASCULAR: Regular rate and rhythm. systolic ejection murmur - ABDOMEN: Soft, non-tender and non-distended. No palpable masses. bowel sounds present. - EXTREMITIES: No edema. Peripheral pulses 2+. Non-tender. - NEUROLOGIC: No focal neurological deficits. CN II-XII grossly intact. - PSYCHIATRIC: Awake, Alert and oriented. Appropriate mood and affect. - SKIN: No rashes or lesions. Warm. - LYMPH: No cervical lymphadenopathy. Objective Data Vital Signs Vital Signs: Vital Signs - 24 hr 05/07/21 20:00 05/07/21 20:36 05/08/21 00:00 Temperature 35.9 C L Pulse Rate 95 96 104 H Respiratory Rate 16 Blood Pressure 143/75 H Pulse Oximetry 92 05/08/21 04:00 05/08/21 04:25 05/08/21 04:47 Temperature Pulse Rate 112 H 120 H 103 H Respiratory Rate 24 H Blood Pressure Pulse Oximetry 97 05/08/21 04:54 05/08/21 06:00 05/08/21 08:00 Temperature 36.5 C Pulse Rate 102 H 109 H 106 H Respiratory Rate 20 26 H 22 H Blood Pressure 152/83 H Pulse Oximetry 98 96 05/08/21 11:44 05/08/21 11:57 05/08/21 12:00 Temperature Pulse Rate 112 H 107 H 95 Respiratory Rate 20 20 Blood Pressur
[2021-05-08] MEDS: MIRTAZAPINE 15 MG TABLET PO (20:35)
[2021-05-09] VITALS (12 sets, daily range): BP systolic 148–156; BP diastolic 80–89; PULSE 92–111; RESP 20–24; TEMP 36.3–36.6; O2SAT 95–98
[2021-05-09 06:11] LABS: Anion Gap 7 mmol/L (8-16); Blood Urea Nitrogen 16 mg/dL (7-17); Calcium 8.6 mg/dL (8.4-10.2); Carbon Dioxide 21 mmol/L (22-30); Chloride 116 mmol/L (98-107); Estimated CRCL calculation 30 ml/min; Estimated Glomerular Filt Rate 53; Glucose 78 mg/dL (65-110); Magnesium 1.8 mg/dL (1.6-2.3); Potassium 3.8 mmol/L (3.4-5.0); Sodium 144 mmol/L (137-145)
[2021-05-09 06:54] LABS: Hematocrit 36.6 % (37.0-47.0); Immature Platelet Fraction Pct 6.5 % (0.9-11.2); Mean Corpuscular HGB Conc 32.8 g/dl (32-36); Mean Corpuscular Hemoglobin 32.9 pg (26-34); Mean Corpuscular Volume 100.3 fl (80-100); Mean Platelet Volume 10.2 fl (7.4-10.4); Platelet Count Result 52 k/mm3 (150-375); Red Blood Count 3.65 M/mm3 (4.2-5.4); Red Cell Distribution Width 19.5 % (11.5-14.5); White Blood Count 9.4 K/mm3 (4.5-10.0)
[2021-05-09] MEDS: LOSARTAN POTASSIUM 100 MG TABLET PO (09:26)
[2021-05-09] MEDS: VENLAFAXINE HCL XR 75 MG CAP.ER.24H PO (09:26)
[2021-05-09] MEDS: ARTIFICIAL TEARS OPHTH SOLN 15 ML BOTTLE 1 DROP EACH EYE ×3 (09:26→18:08)
[2021-05-09] MEDS: allopurinoL 300 MG TABLET PO (09:26)
[2021-05-09] MEDS: methylPREDNISolone SOD SUCC 40 MG VIAL IV PUSH ×3 (09:26→21:12)
[2021-05-09] MEDS: FAMOTIDINE 20 MG/2 ML VIAL IV PUSH ×2 (09:27→21:12)
[2021-05-09] MEDS: polyethylene glycoL 3350 17 GM POWD.PACK PO ×2 (09:27→18:08)
[2021-05-09] MEDS: dilTIAZem HCL CD 180 MG CAP.ER.24H PO (09:27)
--- NOTE | 2021-05-09 10:32 | PM.IMPN ---
Progress Note: A&P Assessment and Plan (1) Pyelonephritis of right kidney: Code(s): N12 - Tubulo-interstitial nephritis, not specified as acute or chronic Status: Acute Assessment and Plan: Continue with Rocephin, day 3 of antibiotics, patient improving clinically and white count normalized. Will treat for a longer course for complicated urinary tract infection (2) COPD exacerbation: Code(s): J44.1 - Chronic obstructive pulmonary disease with (acute) exacerbation Status: Acute Assessment and Plan: -Significant wheezing on lung exam, respiratory distress using intercostal muscles, significant history of smoking -patient may have COPD exacerbation, adding DuoNebs q.6 hours scheduled and Solu-Medrol 40 mg IV q.8 hours -supplemental oxygen as needed, currently on 2 L (3) Hypertension: Qualifiers: Hypertension type: primary hypertension Qualified Code(s): I10 - Essential (primary) hypertension Code(s): I10 - Essential (primary) hypertension Status: Acute Assessment and Plan: Patient getting tachycardic and hypertensive, she has sinus tachycardia. Will increase home Cardizem from 120 mg to 180 mg daily. P.r.n. hydralazine available. Etiology of her worsening hypertension and tachycardia may be from infection, will continue treat underlying issue with antibiotics (4) Respiratory distress, acute: Code(s): R06.03 - Acute respiratory distress Status: Acute Assessment and Plan: May be secondary to COPD exacerbation at this time, patient diuresed appropriately (5) Oliguria: Code(s): R34 - Anuria and oliguria Status: Acute Assessment and Plan: Resolved, patient urine output increased after Lasix dose. Will discontinue Espinal catheter as she is making appropriate urine (6) Loss of appetite: Code(s): R63.0 - Anorexia Status: Acute Assessment and Plan: -Started on mirtazapine this admission to see if we can stimulate appetite -continue dietary supplements (7) Transaminitis: Code(s): R74.01 - Elevation of levels of liver transaminase levels Status: Acute Assessment and Plan: downtrending, likely secondary to pyelonephritis severe infection. Consulted GI and General surgery who agree Additional Plan # Chronic conditions - anxiety/depression: home venlafaxine - hypertension: Losartan, Cardizem, p.r.n. hydralazine - Gout: Allopurinol Diet: Regular DVT prophylaxis: SCDs, history of intracranial bleed GI prophylaxis: Pepcid Code status: Full code Disposition: Pending clinical course, likely home 2-3 days, consulting PT/OT Time Spent With Patient Time with patient: 25 - 35 minutes Subjective Date/time seen: 05/09/21 10:32 Patient seen examined. She seems to be wheezing significantly today and put on 2 L oxygen. She has had p.r.n. DuoNebs previously. Patient has a history of smoking. Yesterday his dyspnea has been attributed to fluid overload from IV fluids with oliguria. Espinal catheter was placed and she responded to 20 mg p.o. Lasix with net-1.2 L. now that it clear she is nonoliguric we can stop Espinal catheter as well. Her infection appears to be improving with white blood cell count down trending. Now with wheezing there is may be a history of COPD and she may be having exacerbation for which she is still on 2 L oxygen. Patient denies fever, chills, nausea, vomiting, diarrhea, chest pain, sputum production, cough. He endorses dyspnea and lack of appetite. Review of Systems Review of Systems: All systems reviewed & are unremarkable except as noted in HPI and below Exam Narrative: - GENERAL: pleasant frail older woman in respiratory distress on 2 L oxygen by nasal cannula - EYES: EOMI. Anicteric. - HENT: Moist mucous membranes. - LUNGS: Tachypneic. Wheezing throughout all lung sanchez. Respiratory distress using intercostal muscles. - CARDIOVASCULAR: Regular rate and rhythm. systolic e
--- NOTE | 2021-05-09 13:42 | WPDCDIQUERY2 ---
CDI Query Clarification Request - Oliguria likely d/t sepsis from pyelonephritis documented on progress note 05/07 -05/06 platelets 73, 05/07 platelets 57, thrombocytopenia may be secondary to infection documented -05/06 bilirubin 3.1 05/07 bilirubin 2.3 could be reactive to infection documented -No further mention of sepsis Please clarify if sepsis has been ruled in or ruled out. <Marianna Rivers RN - Last Filed: 05/09/21 13:51> Clarified Diagnosis (1) Sepsis: Code(s): A41.9 - Sepsis, unspecified organism <Marianna Rivers RN - Last Filed: 05/09/21 13:51> Status: Acute <Marianna Rivers RN - Last Filed: 05/09/21 13:51> Assessment and Plan: sepsis secondary to pyelonephritis, resolved <Veronica Alcantara DO - Last Filed: 05/09/21 13:59>
--- NOTE | 2021-05-09 14:58 | WPDGIPROGNO ---
Progress Note: A&P Assessment and Plan (1) Large hiatal hernia: Code(s): K44.9 - Diaphragmatic hernia without obstruction or gangrene Status: Chronic Assessment and Plan: talked to family member and given large hiatal hernia she will need to continue eating small portions at time still with poor appetite. (2) Elevated liver function tests: Code(s): R79.89 - Other specified abnormal findings of blood chemistry Status: Acute Assessment and Plan: probably multifactorial, stable numbers CT scan imaging reviewed (3) Pyelonephritis of right kidney: Code(s): N12 - Tubulo-interstitial nephritis, not specified as acute or chronic Status: Acute Assessment and Plan: on treatment, normal wbc today (4) Thrombocytopenia: Code(s): D69.6 - Thrombocytopenia, unspecified Status: Acute (5) Leukocytosis: Code(s): D72.829 - Elevated white blood cell count, unspecified Status: Acute Assessment and Plan: resolved Subjective Date/time seen: 05/09/21 14:58 Interval history: no major changes, still wheezing. Family at bedside Review of Systems Review of Systems: All systems reviewed & are unremarkable except as noted in HPI and below Exam Const: General: no acute distress Other: using oxygen, pleasant elderly HENMT: General nose exam: Normal nares present Neck: Neck: supple Resp: Auscultation: wheezes Cardio: Rate: regular rate GI: Inspection: non-distended GI Palp: Yes Soft to palpation, No Tenderness to palpation present (GI) and No Guarding due to palpation present (GI) Auscultation: normal bowel sounds Skin: General skin exam: normal color Neuro: Speech: normal speech Motor exam (neuro): Normal motor muscle tone present throughout Extrem: General: normal to inspection Psych: Mental Status: mental status grossly normal Objective Data Vital Signs Vital Signs: Vital Signs - 24 hr 05/08/21 16:00 05/08/21 20:00 05/08/21 20:45 Temperature 97.7 F Pulse Rate 98 99 101 H Respiratory Rate 24 H Blood Pressure 168/80 H Pulse Oximetry 98 98 05/09/21 00:00 05/09/21 04:00 05/09/21 06:00 Temperature 97.8 F Pulse Rate 102 H 108 H 111 H Respiratory Rate 20 Blood Pressure 149/89 H Pulse Oximetry 98 05/09/21 08:00 05/09/21 14:00 Temperature 97.9 F Pulse Rate 111 H 96 Respiratory Rate 20 24 H Blood Pressure 148/80 H Pulse Oximetry 98 98 Intake/Output Intake/Output: Intake & Output 05/06/21 05/07/21 05/08/21 05/09/21 23:59 23:59 23:59 23:59 Intake Total 1050 3690 1350 400 Output Total 900 850 950 Balance 1050 2790 500 -550 Meds/Results Medications: Active Medications Generic Name Dose Route Start Last Admin Trade Name Freq PRN Reason Stop Dose Admin Albuterol 2.5 mg 05/09/21 14:00 Albuterol Sulfate Neb 2.5 Mg/0.5 Ml Inh INHALATION Q6HRT [facility] Allopurinol 300 mg 05/07/21 08:00 05/09/21 09:26 Allopurinol 300 Mg Tablet PO 300 mg DAILY@0800 ROZINA Administration Artificial Tears 1 drop 05/07/21 09:00 05/09/21 12:44 Artificial Tears Ophth Soln 15 Ml Bottle EACH EYE 06/06/21 09:01 1 drop TID ROZINA Administration Diltiazem HCl 180 mg 05/09/21 09:00 05/09/21 09:27 Diltiazem Hcl Cd 180 Mg Cap.Er.24h PO 180 mg QAM ROZINA Administration Famotidine 20 mg 05/06/21 21:00 05/09/21 09:27 Famotidine 20 Mg/2 Ml Vial IV PUSH 20 mg Q12HR ROZINA Administration Hydralazine HCl 10 mg 05/08/21 17:53 Hydralazine Hcl 20 Mg/Ml Vial IV PUSH Q8H PRN Blood Pressure - High Ceftriaxone Sodium/Dextrose 1 gm in 50 mls @ 100 mls/hr 05/08/21 11:00 05/09/21 13:13 Rocephin 1 Gm/D5w 50 Ml IVPB Infused Q24H ROZINA Infusion Ipratropium Solgohachia 0.5 mg 05/09/21 14:00 Ipratropium Br 0.02% Inh Soln 0.5 Mg/2.5 Ml Vial INHALATION Q6HRT [facility] Losartan Potassium 100 mg 05/07/21 09:00 05/09/21 09:26 Losartan Potassium 100 Mg Tablet PO 100 mg
--- NOTE | 2021-05-09 15:37 | PM.PNGS ---
Progress Note: A&P Assessment and Plan (1) Large hiatal hernia: Code(s): K44.9 - Diaphragmatic hernia without obstruction or gangrene Status: Chronic Assessment and Plan: Very large hiatal hernia containing stomach, colon, and pancreas without evidence of obstruction. Tolerating a regular diet, although dealing with poor appetite, which seems to have improved today. This hiatal hernia does not appear to be the cause of her present illness and there are no plans for surgical intervention at this time. We will sign off of the case. Please let us know if there are any future surgical needs. (2) Pyelonephritis of right kidney: Code(s): N12 - Tubulo-interstitial nephritis, not specified as acute or chronic Status: Acute Assessment and Plan: Clinically improving with current treatment of the pyelonephritis. WBC normalized. Continue with IV Rocephin and further antibiotic management per Hospitalist. (3) Thrombocytopenia: Code(s): D69.6 - Thrombocytopenia, unspecified Status: Acute (4) Leukocytosis: Code(s): D72.829 - Elevated white blood cell count, unspecified Status: Acute Assessment and Plan: Resolved. See plan above. [place] to be secondary to pyelonephritis. (5) Elevated liver function tests: Code(s): R79.89 - Other specified abnormal findings of blood chemistry Status: Acute Additional Plan Discussed plan of care with Dr. Uriarte. Subjective Subjective Date/Time Seen: 05/09/21 15:37 Patient reports: feels better, tolerating a regular diet, flatus and bowel movement Interval history: Patient seen today with daughter at the bedside. She reports feeling even better today. No complaints of pain. Denies nausea, vomiting, or reflux symptoms. She is tolerating a regular diet, but has a decreased appetite. Per her daughter, she did have some reflux symptoms early this morning, but nothing since. No other complaints at this time. Exam Const: General: comfortable, no acute distress and awake Orientation/consciousness: oriented to person and oriented to place GI: Inspection: non-distended GI Palp: Yes Soft to palpation, No Tenderness to palpation present (GI), No Guarding due to palpation present (GI) and No Rebound tenderness present Auscultation: normal bowel sounds Skin: General skin exam: normal color Neuro: General: moves all extremities and no focal motor deficits Psych: Mental Status: mental status grossly normal Insight: Fair insight present (Psych) Objective Data Vital Signs Vital Signs: Vital Signs - 24 hr 05/08/21 16:00 05/08/21 20:00 05/08/21 20:45 Temperature 97.7 F Pulse Rate 98 99 101 H Respiratory Rate 24 H Blood Pressure 168/80 H Pulse Oximetry 98 98 05/09/21 00:00 05/09/21 04:00 05/09/21 06:00 Temperature 97.8 F Pulse Rate 102 H 108 H 111 H Respiratory Rate 20 Blood Pressure 149/89 H Pulse Oximetry 98 05/09/21 08:00 05/09/21 12:00 05/09/21 14:00 Temperature 97.9 F Pulse Rate 110 H 107 H 96 Respiratory Rate 20 24 H Blood Pressure 148/80 H Pulse Oximetry 98 98 Intake/Output Intake/Output: Intake & Output 05/06/21 05/07/21 05/08/21 05/09/21 23:59 23:59 23:59 23:59 Intake Total 1050 3690 1350 400 Output Total 900 850 950 Balance 1050 2790 500 -550 Meds/Results Medications: Active Medications Generic Name Dose Route Start Last Admin Trade Name Freq PRN Reason Stop Dose Admin Albuterol 2.5 mg 05/09/21 14:00 Albuterol Sulfate Neb 2.5 Mg/0.5 Ml Inh INHALATION Q6HRT [facility] Allopurinol 300 mg 05/07/21 08:00 05/09/21 09:26 Allopurinol 300 Mg Tablet PO 300 mg DAILY@0800 [facility] Administration Artificial Tears 1 drop 05/07/21 09:00 05/09/21 12:44 Artificial Tears Ophth Soln 15 Ml Bottle EACH EYE 06/06/21 09:01 1 drop TID ROZINA Administration Diltiazem HCl 180 mg 05/09/21 09:00 05/09/21 09:27 Diltiazem Hcl Cd 180 Mg Cap.Er.24h PO 180 mg QAM [facility] A
[2021-05-09] MEDS: MIRTAZAPINE 15 MG TABLET PO (21:11)
[2021-05-09] MEDS: ALBUTEROL SULFATE NEB 2.5 MG/0.5 ML INH INHALATION (21:57)
[2021-05-09] MEDS: IPRATROPIUM BR 0.02% INH SOLN 0.5 MG/2.5 ML VIAL INHALATION (21:57)
[2021-05-10] VITALS (14 sets, daily range): BP systolic 158; BP diastolic 88; PULSE 88–123; RESP 20–24; TEMP 36.6; O2SAT 93–98
[2021-05-10] MEDS: ALBUTEROL SULFATE NEB 2.5 MG/0.5 ML INH INHALATION ×4 (02:59→21:16)
[2021-05-10] MEDS: IPRATROPIUM BR 0.02% INH SOLN 0.5 MG/2.5 ML VIAL INHALATION ×4 (02:59→21:15)
[2021-05-10] MEDS: methylPREDNISolone SOD SUCC 40 MG VIAL IV PUSH ×2 (05:50→15:13)
[2021-05-10 06:05] LABS: Hematocrit 38.1 % (37.0-47.0); Hemoglobin 12.3 g/dL (12.0-15.0); Immature Platelet Fraction Pct 7.8 % (0.9-11.2); Mean Corpuscular HGB Conc 32.3 g/dl (32-36); Mean Corpuscular Hemoglobin 32.9 pg (26-34); Mean Corpuscular Volume 101.9 fl (80-100); Mean Platelet Volume 11.7 fl (7.4-10.4); Platelet Count Result 59 k/mm3 (150-375); Red Blood Count 3.74 M/mm3 (4.2-5.4); Red Cell Distribution Width 19.9 % (11.5-14.5); White Blood Count 12.3 K/mm3 (4.5-10.0)
[2021-05-10 06:15] LABS: Alanine Aminotransferase 110 U/L (4-35); Albumin Level 3.2 g/dL (3.5-5.1); Alkaline Phosphatase 588 U/L (38-126); Anion Gap 11 mmol/L (8-16); Aspartate Amino Transferase 131 U/L (14-36); Bilirubin,Total 3.2 mg/dL (0.2-1.3); Blood Urea Nitrogen 23 mg/dL (7-17); Calcium 8.7 mg/dL (8.4-10.2); Carbon Dioxide 20 mmol/L (22-30); Chloride 111 mmol/L (98-107); Estimated CRCL calculation 28 ml/min; Estimated Glomerular Filt Rate 48; Glucose 124 mg/dL (65-110); Potassium 3.8 mmol/L (3.4-5.0); Sodium 142 mmol/L (137-145)
[2021-05-10] MEDS: ARTIFICIAL TEARS OPHTH SOLN 15 ML BOTTLE 1 DROP EACH EYE ×2 (08:56→16:06)
[2021-05-10] MEDS: allopurinoL 300 MG TABLET PO (08:56)
[2021-05-10] MEDS: LOSARTAN POTASSIUM 100 MG TABLET PO (08:56)
[2021-05-10] MEDS: polyethylene glycoL 3350 17 GM POWD.PACK PO ×2 (08:56→16:06)
[2021-05-10] MEDS: VENLAFAXINE HCL XR 75 MG CAP.ER.24H PO (08:56)
[2021-05-10] MEDS: dilTIAZem HCL CD 180 MG CAP.ER.24H PO (08:57)
[2021-05-10] MEDS: FAMOTIDINE 20 MG/2 ML VIAL IV PUSH ×2 (08:57→21:30)
[2021-05-10 09:39] LABS: Basophils Percent Auto 0.2 % (0.2-1.2); Hematocrit 40.5 % (37.0-47.0); Hemoglobin 13.1 g/dL (12.0-15.0); Immature Granulocyte Percent A 1.4 % (0-0.5); Immature Platelet Fraction Pct 7.6 % (0.9-11.2); Immature Reticulocyte Fraction 30.5 % (3.0-15.9); Lymphocytes Absolute Auto 0.71 K/mm3 (0.9-3.2); Lymphocytes Percent Auto 5.1 % (18.3-44.2); Mean Corpuscular HGB Conc 32.3 g/dl (32-36); Mean Corpuscular Hemoglobin 32.8 pg (26-34); Mean Corpuscular Volume 101.5 fl (80-100); Mean Platelet Volume 12.4 fl (7.4-10.4); Monocytes Absolute Auto 0.4 K/mm3 (0.1-0.6); Monocytes Percent Auto 3.2 % (2.6-8.5); Neutrophils Absolute Auto 12.6 K/mm3 (1.3-6.7); Neutrophils Percent Auto 90.1 % (45.5-73.1); Nucleated Red Blood Cells Absolute Auto 1.3 K/mm3 (0.0-0.012); Nucleated Red Blood Cells Perc 9.1 % (0.0-0.2); Platelet Count Result 61 k/mm3 (150-375); Red Blood Count 3.99 M/mm3 (4.2-5.4); Red Cell Distribution Width 20.4 % (11.5-14.5); Reticulocyte Hemoglobin Conten 35.7 pg (28.2-35.7); Reticulocyte Percent 4.65 % (0.7-4.3); Reticulocytes Absolute 0.19 B/L (32.2-175.7)
[2021-05-10 09:41] LABS: Lactate Dehydrogenase 2049 U/L (313-618)
[2021-05-10 10:46] LABS: Band Neutrophils Percent 1 % (0-6); Lymphocytes Absolute Manual 0.42 K/mm3 (1.1-4.5); Monocytes Absolute Manual 0.14 K/mm3 (0.1-0.90); Monocytes Percent Manual 1 % (3-9); Neutrophils Absolute Manual 13.44 K/mm3 (1.7-7.2); Neutrophils Percent Manual 95 % (46-73); Nucleated Red Blood Cells 10 %; Platelet Estimate Decreased (Adequate); Total Cells Counted 100
[2021-05-10 10:47] LABS: Anisocytosis 2+ (NORMAL); Ovalocytes 1+ (NORMAL); Poikilocytosis 1+ (NORMAL); Polychromasia 1+ (NORMAL); Target Cells 1+ (NORMAL)
[2021-05-10 10:49] LABS: Erythrocyte Sedimentation Rate 20 mm/hr (0-20)
[2021-05-10 12:09] LABS: D Dimer > 20.00 ug/mL (<0.48)
--- NOTE | 2021-05-10 14:11 | PC.NURSE ---
Patient off the unit and taken to cat scan. Placed on covid precautions, a specimen was obtained and sent to the lab. Report called to room 330 and family is aware of the transfer.
--- NOTE | 2021-05-10 14:24 | PC.NURSE ---
Patient transferred to room 330, report was called and family is aware.
--- NOTE | 2021-05-10 14:30 | PC.NURSE ---
This patient, Nicole Peña, was received from [3 med ] on 05/10/21 at 1420. Patient/family oriented to unit policies and routines
--- NOTE | 2021-05-10 18:31 | PM.IMPN ---
Progress Note: A&P Assessment and Plan (1) Sepsis: Qualifiers: Sepsis type: sepsis due to unspecified organism Sepsis acute organ dysfunction status: unspecified Qualified Code(s): A41.9 - Sepsis, unspecified organism Code(s): A41.9 - Sepsis, unspecified organism Status: Acute (2) Pyelonephritis of right kidney: Code(s): N12 - Tubulo-interstitial nephritis, not specified as acute or chronic Status: Acute (3) Transaminitis: Code(s): R74.01 - Elevation of levels of liver transaminase levels Status: Acute (4) Abnormal computed tomography of abdomen and pelvis: Code(s): R93.5 - Abnormal findings on diagnostic imaging of other abdominal regions, including retroperitoneum Status: Acute (5) Large hiatal hernia: Code(s): K44.9 - Diaphragmatic hernia without obstruction or gangrene Status: Chronic (6) Thrombocytopenia: Code(s): D69.6 - Thrombocytopenia, unspecified Status: Acute (7) Leukocytosis: Qualifiers: Leukocytosis type: unspecified Qualified Code(s): D72.829 - Elevated white blood cell count, unspecified Code(s): D72.829 - Elevated white blood cell count, unspecified Status: Acute (8) UTI (urinary tract infection): Qualifiers: Urinary tract infection type: site unspecified Hematuria presence: without hematuria Qualified Code(s): N39.0 - Urinary tract infection, site not specified Code(s): N39.0 - Urinary tract infection, site not specified Status: Acute (9) Anxiety and depression: Code(s): F41.9 - Anxiety disorder, unspecified; F32.9 - Major depressive disorder, single episode, unspecified Status: Chronic (10) Benign essential hypertension: Code(s): I10 - Essential (primary) hypertension Status: Acute (11) Hyperbilirubinemia: Code(s): E80.6 - Other disorders of bilirubin metabolism Status: Acute (12) Elevated d-dimer: Code(s): R79.89 - Other specified abnormal findings of blood chemistry Status: Acute (13) Person under investigation for COVID-19: Code(s): Z20.822 - Contact with and (suspected) exposure to COVID-19 Status: Acute (14) Colitis: Code(s): K52.9 - Noninfective gastroenteritis and colitis, unspecified Status: Acute (15) Acute respiratory failure with hypoxia: Code(s): J96.01 - Acute respiratory failure with hypoxia Status: Acute Additional Plan Patient received medication IV ceftriaxone for E coli UTI -course completed CT scan performed on 05/10 revealed concerns for ascending colitis, patient is being started on IV Zosyn for this purpose D-dimer elevated to greater than 20,000; CT PE not concerning Continued hyperbilirubinemia and elevated ALT AST possibly secondary to untreated colitis Continued thrombocytopenia possibly secondary to untreated colitis Given continued thrombocytopenia increased LDH decreased retic count and elevated D-dimer, it is reasonable to contact Hematology Oncology for further workup. Given her presentation with sepsis UTI and now colitis concerns for DIC remain. Will send out CBC, CMP, PT, PTT, LFTs, B12, folic acid, D-dimer, LDH levels were morning. Her acute hypoxic respiratory failure is secondary to atelectasis due to compression from large hiatal hernia New leukocytosis can be explained by Solu-Medrol, that the patient was started on 05/09 due to concerns with wheezing and possible COPD exacerbation; will discontinue steroids Will off on prophylactic anticoagulation, continue recommendations from Hematology Oncology. Subjective Date/time seen: 05/10/21 18:31 81-year-old female with past medical history significant for hypertension, hyperlipidemia, anxiety, depression, aortic stenosis, gout and history of breast cancer status post treatment presented with complaints of poor appetite and generalized weakness. Patient was being managed as a case of acute
[2021-05-10] MEDS: SODIUM CHLORIDE 0.9% IV 1,000 ML 100 ML IV CONT (18:40)
[2021-05-10] MEDS: MIRTAZAPINE 15 MG TABLET PO (21:30)
[2021-05-10] MEDS: LORazepam INJ (*CRX) 2 MG/ML VIAL 1 MG IV PUSH (22:30)
[2021-05-11] VITALS (12 sets, daily range): BP systolic 148–175; BP diastolic 86–96; PULSE 97–113; RESP 20–28; TEMP 35.7–36.8; O2SAT 94–99
[2021-05-11] MEDS: ALBUTEROL SULFATE NEB 2.5 MG/0.5 ML INH INHALATION ×3 (02:34→14:41)
[2021-05-11] MEDS: IPRATROPIUM BR 0.02% INH SOLN 0.5 MG/2.5 ML VIAL INHALATION ×3 (02:34→14:41)
[2021-05-11 07:13] LABS: Hematocrit 38.4 % (37.0-47.0); Hemoglobin 12.4 g/dL (12.0-15.0); Immature Platelet Fraction Pct 14.1 % (0.9-11.2); Mean Corpuscular HGB Conc 32.3 g/dl (32-36); Mean Corpuscular Hemoglobin 32.7 pg (26-34); Mean Corpuscular Volume 101.3 fl (80-100); Platelet Count Result 31 k/mm3 (150-375); Red Blood Count 3.79 M/mm3 (4.2-5.4); Red Cell Distribution Width 20.9 % (11.5-14.5); White Blood Count 24.9 K/mm3 (4.5-10.0)
[2021-05-11 07:21] LABS: Lactic Acid Reflex 3.8 mmol/L (0.7-2.1)
[2021-05-11 07:37] LABS: INR 2.2; Prothrombin Time 24.1 Seconds (11.1-14.7)
[2021-05-11 07:38] LABS: Partial Thromboplastin Time 33.5 SECONDS (22.3-36.8)
[2021-05-11 07:50] LABS: Alanine Aminotransferase 215 U/L (4-35); Albumin Level 3.1 g/dL (3.5-5.1); Alkaline Phosphatase 555 U/L (38-126); Anion Gap 11 mmol/L (8-16); Aspartate Amino Transferase 573 U/L (14-36); Bilirubin Direct 2.1 mg/dL (0-0.3); Bilirubin,Total 5.2 mg/dL (0.2-1.3); Blood Urea Nitrogen 36 mg/dL (7-17); CRP 5.8 mg/dL (<1.0); Carbon Dioxide 19 mmol/L (22-30); Chloride 114 mmol/L (98-107); Creatine Kinase 266 U/L (30-135); Estimated CRCL calculation 21 ml/min; Estimated Glomerular Filt Rate 33; Glucose 96 mg/dL (65-110); Potassium 3.8 mmol/L (3.4-5.0); Sodium 144 mmol/L (137-145)
[2021-05-11 07:57] LABS: Band Neutrophils Percent 3 % (0-6); Lymphocytes Absolute Manual 0.24 K/mm3 (1.1-4.5); Metamyelocytes Percent 3 %; Monocytes Absolute Manual 0.24 K/mm3 (0.1-0.90); Monocytes Percent Manual 1 % (3-9); Neutrophils Absolute Manual 23.65 K/mm3 (1.7-7.2); Neutrophils Percent Manual 92 % (46-73); Nucleated Red Blood Cells 14 %; Total Cells Counted 100
[2021-05-11 07:58] LABS: Large Platelets Present; Platelet Estimate Decreased (Adequate); Schistocytes 1+ (NORMAL)
[2021-05-11 07:59] LABS: Hypochromasia 1+ (NORMAL)
[2021-05-11 08:00] LABS: Anisocytosis 1+ (NORMAL)
[2021-05-11 08:06] LABS: D Dimer > 20.00 ug/mL (<0.48)
[2021-05-11 08:40] LABS: Folic Acid 14.5 ng/mL (2.76->20); Lactate Dehydrogenase 5261 U/L (313-618); Vitamin B12 > 1000.0 pg/mL (239-931)
[2021-05-11 10:05] LABS: Reflex Lactic Acid Yes or No Add Lactic
[2021-05-11 10:45] LABS: Lactic Acid 3.1 mmol/L (0.7-2.1)
[2021-05-11] MEDS: FAMOTIDINE 20 MG/2 ML VIAL IV PUSH ×2 (10:58→20:34)
[2021-05-11] MEDS: SODIUM CHLORIDE 0.9% IV 1,000 ML 999 ML IV CONT (11:08)
--- NOTE | 2021-05-11 11:35 | PCNFU ---
Nutrition Follow-Up Complete: Inadequate Oral Intake as related to constipation/nausea as evidenced by poo po intake reported. Goal: adequate Intake of at least 75% of meals/supplements Patient progressing towards goal. We will continue current goal. Pt current nutrition is NPO. Last recorded weight is 53.4 kg, down from 61.2 kg on admit. Bowel Motility:+BM reported 05/11 Labs Reviewed:BUN 36,Cr 1.5,Alb 3.1 Meds Noted:Effexor,NS, Vancomycin,Atrovent,Zosyn,Zyloprim,Cardizem,Zofran. Additional Notes: Patient has been transferred to 3rd med/surg due to COVID pending. Deit order: NPO at this time. Speech therapy as been consulted for bedside swallow for possible aspiration pneumonia. Monitoring: Will monitor every 3 days.
--- NOTE | 2021-05-11 11:47 | PCPTNOTE ---
Held therapy this date due to patient's change in medical status.
[2021-05-11 12:35] LABS: Glucose Point of Care 97 mg/dl (65-105)
[2021-05-11 12:46] LABS: Ferritin > 2000.00 ng/mL (11.1-264)
--- NOTE | 2021-05-11 12:48 | PDONCCN ---
HPI - Date of Consult Date/Time: 05/11/21 12:48 Requesting Physician: Concha Lewis MD Primary Care Provider: Madhavi Jack MD - Consult Narrative Reason for consult: Leukocytosis and thrombocytopenia Narrative: Nicole Peña is a 81 year old female with history of breast cancer as well as hypertension aortic stenosis and gout came into the hospital with generalized weakness and poor appetite. Patient is quite disoriented and confused at this time and will not be able to provide me history. History was obtained with the review of chart and discussion with the nursing staff. Labs showed elevated WBC count of 14,000 which has now increased to 24.9. Platelet count [place] [address] now dropped down to 31,000. Patient does have some bruising in the upper extremities but no other bleeding. Hemoglobin remains stable. Other labs shows 1+ schistocyte and elevated LDH. Creatinine was also elevated at 1.5. I am not clear about any previous history of kidney disease. CT scan was performed for PE that showed no evidence of pulmonary embolism but there was wall thickening in the ascending colon reflecting colitis versus possibility of malignancy. There was large hiatal hernia and mild right hydronephrosis. Doppler study showed no evidence of DVT. Review of Systems - Review of Systems All systems reviewed & are unremarkable except as noted in HPI and bel - Neurologic Reports weakness, Denies abnormal speech, Denies headache(s), Denies focal weakness, Denies numbness, Denies sensory deficit [facility] Medical History: Medical History (Last Updated 05/06/21 @ 22:12 by Ca Morse PA-C) Anxiety and depression Benign essential hypertension Breast cancer in female Onset Date: 11/2003 Left breast cancer in 2003. Right breast cancer 2006. Cerebral hemorrhage following injury Onset Date: 07/2018 Traumatic subarachnoid hemorrhage. Diverticulosis Gout Iron deficiency anemia Moderate aortic stenosis Osteoporosis Psoriasis Rectal bleeding Colonoscopy in 10/2020 showed diverticulosis. Urinary incontinence Surgical History: Surgical History (Last Updated 05/06/21 @ 22:12 by Ca Morse PA-C) History of bilateral cataract extraction History of bilateral mastectomy Left breast 12/03/2003. Right breast 11/21/2011. History of colonoscopy with polypectomy Family History: Family History (Last Reviewed 05/06/21 @ 22:12 by Ca Morse PA-C) Father Diabetes mellitus Grandparent Cerebrovascular accident Mother Family history of lung cancer - Social History Social History: Social History (Last Updated 05/06/21 @ 22:14 by Ca Morse PA-C) Others: Spiritual care concerns: No Living Arrangements: Living arrangements: with family Oppucation/Education: Occupation/Education: retired Meds Home Medications Medication Instructions Recorded Confirmed Type calcium carbonate 600 mg calcium 600 mg PO BID 10/14/19 05/06/21 History (1,500 mg) tablet ergocalciferol (vitamin D2) 1,250 1,250 mcg PO [id number] cap 10/14/19 05/06/21 History mcg (50,000 unit) capsule alendronate 70 mg tablet 70 mg PO WEEKLY #12 tablet 04/21/20 05/06/21 Rx Systane (PF) 1 drp EACH EYE TID 11/09/20 05/06/21 History vitamins A,C,F-tima-zygxqw 2 tablet PO BID 11/09/20 05/06/21 History diltiazem HCl 120 mg tablet 120 mg PO DAILY #90 tablet 11/14/20 05/06/21 Rx venlafaxine 75 mg capsule,extended 75 mg PO DAILY #90 cap 11/29/20 05/06/21 Rx release 24 hr colchicine 0.6 mg capsule 0.6 mg PO DAILY PRN cap 12/29/20 05/06/21 History lidocaine HCl 4 % topical cream 1 applic TOPICAL TID PRN #120 g 01/27/21 05/06/21 Rx polyethylene glycol 3350 17 gram 17 g PO DAILY #30 ea 01/27/21 05/06/21 Rx oral powder packet allopurinol 300 mg tablet 300 mg PO DAILY #90 tablet 02/24/21 05/06/21 Rx losartan 100 mg tablet 100 mg PO DAILY #90 tablet 03/14/21 05/06/21 Rx A
--- NOTE | 2021-05-11 13:36 | WPDINFPN2 ---
Progress Note: A&P Assessment and Plan (1) UTI (urinary tract infection): Qualifiers: Hematuria presence: without hematuria Urinary tract infection type: site unspecified Qualified Code(s): N39.0 - Urinary tract infection, site not specified Code(s): N39.0 - Urinary tract infection, site not specified Status: Acute Assessment and Plan: 1. UTI 2. Leukocytosis, due to above as well as steroid Rx 3. Renal insufficiency REC PipTazo and Vanc combination has increased risk of ANA, so stop. Narrow spectrum of activity to Ancef. Can change to oral cephalexin once stable. Avoid steroids. Call if Qs Subjective Date/time seen: 05/11/21 13:36 Objective Data Vital Signs Vital Signs: Vital Signs - 24 hr 05/10/21 16:00 05/10/21 16:12 05/10/21 16:21 Temperature Pulse Rate 95 92 88 Respiratory Rate 22 H 22 H Blood Pressure Pulse Oximetry 93 05/10/21 20:05 05/10/21 21:15 05/10/21 21:25 Temperature Pulse Rate 89 123 H Respiratory Rate 24 H 24 H Blood Pressure Pulse Oximetry 96 96 96 05/11/21 02:40 05/11/21 02:52 05/11/21 04:00 Temperature 36.8 C Pulse Rate 102 H 107 H 97 Respiratory Rate 28 H 24 H 20 Blood Pressure 151/86 H Pulse Oximetry 95 05/11/21 08:00 05/11/21 10:51 05/11/21 11:04 Temperature 36.0 C L Pulse Rate 111 H 100 106 H Respiratory Rate 24 H 22 H 22 H Blood Pressure 155/87 H Pulse Oximetry 95 94 05/11/21 12:58 Temperature 35.7 C L Pulse Rate 108 H Respiratory Rate 26 H Blood Pressure 148/96 H Pulse Oximetry 99 Intake/Output Intake/Output: Intake & Output 05/08/21 05/09/21 05/10/21 05/11/21 23:59 23:59 23:59 23:59 Intake Total 1350 600 980 150 Output Total 850 950 350 Balance 500 -350 630 150 Meds/Results Medications: Active Medications Generic Name Dose Route Start Last Admin Trade Name Freq PRN Reason Stop Dose Admin Albuterol 2.5 mg 05/09/21 14:00 05/11/21 10:48 Albuterol Sulfate Neb 2.5 Mg/0.5 Ml Inh INHALATION 2.5 mg Q6HRT ROZINA Administration Allopurinol 300 mg 05/07/21 08:00 05/11/21 10:58 Allopurinol 300 Mg Tablet PO 300 mg DAILY@0800 ROZINA Administration Artificial Tears 1 drop 05/07/21 09:00 05/10/21 16:06 Artificial Tears Ophth Soln 15 Ml Bottle EACH EYE 06/06/21 09:01 1 drop TID ROZINA Administration Diltiazem HCl 180 mg 05/09/21 09:00 05/11/21 10:57 Diltiazem Hcl Cd 180 Mg Cap.Er.24h PO 180 mg QAM ROZINA Administration Famotidine 20 mg 05/06/21 21:00 05/11/21 10:58 Famotidine 20 Mg/2 Ml Vial IV PUSH 20 mg Q12HR ROZINA Administration Hydralazine HCl 10 mg 05/08/21 17:53 Hydralazine Hcl 20 Mg/Ml Vial IV PUSH Q8H PRN Blood Pressure - High Sodium Chloride 1,000 mls @ 100 mls/hr 05/10/21 18:30 05/10/21 18:40 Normal Saline Iv IV CONT 100 mls/hr .Q10H ROZINA Administration Vancomycin HCl 750 mg in 250 mls @ 250 mls/hr 05/11/21 12:00 05/11/21 11:10 Vancomycin 750 Mg/D5w 250 Ml IVPB 250 mls/hr Q36H ROZINA Administration Ipratropium [place] 0.5 mg 05/09/21 14:00 05/11/21 10:49 Ipratropium Br 0.02% Inh Soln 0.5 Mg/2.5 Ml Vial INHALATION 0.5 mg Q6HRT ROZINA Administration Losartan Potassium 100 mg 05/07/21 09:00 05/11/21 11:09 Losartan Potassium 100 Mg Tablet PO Not Given DAILY ROZINA Mirtazapine 15 mg 05/07/21 21:00 05/10/21 21:30 Mirtazapine 15 Mg Tablet PO 15 mg HS ROZINA Administration Ondansetron HCl 4 mg 05/06/21 18:08 05/06/21 20:22 Ondansetron Inj 4 Mg/2 Ml Vial IV PUSH 4 mg Q4H PRN Administration Nausea Polyethylene Glycol 17 gm 05/07/21 17:00 05/11/21 10:57 Polyethylene Glycol 3350 17 Gm Powd.Pack PO 17 gm BID ROZINA Administration Venlafaxine HCl 75 mg 05/07/21 08:00 05/11/21 10:57 Venlafaxine Hcl Xr 75 Mg Cap.Er.24h PO 75 mg DAILY@0800 ROZINA Administration Radiology Results: ITS Impressions Abdomen/Pelvis CT 05/06/21 17:11 IMPRESSION: 1. Small ple
[2021-05-11] MEDS: ARTIFICIAL TEARS OPHTH SOLN 15 ML BOTTLE 1 DROP EACH EYE ×2 (13:52→18:43)
[2021-05-11 14:39] LABS: Hematocrit 37.9 % (37.0-47.0); Immature Platelet Fraction Pct 15.1 % (0.9-11.2); Mean Corpuscular HGB Conc 31.7 g/dl (32-36); Mean Corpuscular Hemoglobin 32.3 pg (26-34); Mean Corpuscular Volume 102.2 fl (80-100); Red Blood Count 3.71 M/mm3 (4.2-5.4); Red Cell Distribution Width 21.7 % (11.5-14.5); White Blood Count 28.3 K/mm3 (4.5-10.0)
--- NOTE | 2021-05-11 14:42 | PCOTNOTE ---
Attempted to see patient this am, however patient unable to participate in functional OT at this time. Per SUPPLEMENTAL NURSE, patient was given Ativan and has been Out of it all day.
[2021-05-11 14:45] LABS: Lactic Acid Reflex 2.9 mmol/L (0.7-2.1)
[2021-05-11 14:50] LABS: INR 2.4; Prothrombin Time 25.8 Seconds (11.1-14.7)
[2021-05-11 14:55] LABS: Alanine Aminotransferase 271 U/L (4-35); Albumin Level 3.1 g/dL (3.5-5.1); Alkaline Phosphatase 522 U/L (38-126); Anion Gap 13 mmol/L (8-16); Aspartate Amino Transferase 706 U/L (14-36); Bilirubin,Total 6.2 mg/dL (0.2-1.3); Blood Urea Nitrogen 40 mg/dL (7-17); Calcium 8.4 mg/dL (8.4-10.2); Carbon Dioxide 17 mmol/L (22-30); Chloride 114 mmol/L (98-107); Estimated CRCL calculation 19 ml/min; Estimated Glomerular Filt Rate 31; Glucose 112 mg/dL (65-110); Potassium 3.8 mmol/L (3.4-5.0); Sodium 144 mmol/L (137-145)
[2021-05-11 15:13] LABS: Platelet Count Result 25 k/mm3 (150-375)
[2021-05-11 15:19] LABS: Band Neutrophils Percent 1 % (0-6); Lymphocytes Absolute Manual 2.83 K/mm3 (1.1-4.5); Monocytes Absolute Manual 0.28 K/mm3 (0.1-0.90); Monocytes Percent Manual 1 % (3-9); Neutrophils Absolute Manual 25.18 K/mm3 (1.7-7.2); Neutrophils Percent Manual 88 % (46-73); Nucleated Red Blood Cells 20 %; Platelet Estimate Decreased (Adequate); Total Cells Counted 100
--- NOTE | 2021-05-11 15:44 | PCSTNOTE ---
Please refer to the Bedside Swallow Evaluation in the EMR. Please note, silent aspiration cannot be ruled out at bedside.
--- NOTE | 2021-05-11 18:20 | PM.IMPN ---
Progress Note: A&P Assessment and Plan (1) Acute respiratory failure with hypoxia: Code(s): J96.01 - Acute respiratory failure with hypoxia Status: Acute (2) Colitis: Code(s): K52.9 - Noninfective gastroenteritis and colitis, unspecified Status: Acute (3) Person under investigation for COVID-19: Code(s): Z20.822 - Contact with and (suspected) exposure to COVID-19 Status: Acute (4) Elevated d-dimer: Code(s): R79.89 - Other specified abnormal findings of blood chemistry Status: Acute (5) Hyperbilirubinemia: Code(s): E80.6 - Other disorders of bilirubin metabolism Status: Acute (6) Sepsis: Qualifiers: Sepsis type: sepsis due to unspecified organism Sepsis acute organ dysfunction status: unspecified Qualified Code(s): A41.9 - Sepsis, unspecified organism Code(s): A41.9 - Sepsis, unspecified organism Status: Acute (7) Hypertension: Qualifiers: Hypertension type: primary hypertension Qualified Code(s): I10 - Essential (primary) hypertension Code(s): I10 - Essential (primary) hypertension Status: Acute (8) Oliguria: Code(s): R34 - Anuria and oliguria Status: Acute (9) Pyelonephritis of right kidney: Code(s): N12 - Tubulo-interstitial nephritis, not specified as acute or chronic Status: Acute (10) Transaminitis: Code(s): R74.01 - Elevation of levels of liver transaminase levels Status: Acute (11) Abnormal computed tomography of abdomen and pelvis: Code(s): R93.5 - Abnormal findings on diagnostic imaging of other abdominal regions, including retroperitoneum Status: Acute (12) Large hiatal hernia: Code(s): K44.9 - Diaphragmatic hernia without obstruction or gangrene Status: Chronic (13) Abnormal urinalysis: Code(s): R82.90 - Unspecified abnormal findings in urine Status: Acute (14) Thrombocytopenia: Code(s): D69.6 - Thrombocytopenia, unspecified Status: Acute (15) Leukocytosis: Qualifiers: Leukocytosis type: unspecified Qualified Code(s): D72.829 - Elevated white blood cell count, unspecified Code(s): D72.829 - Elevated white blood cell count, unspecified Status: Acute (16) Dehydration: Code(s): E86.0 - Dehydration Status: Acute (17) UTI (urinary tract infection): Qualifiers: Hematuria presence: without hematuria Urinary tract infection type: site unspecified Qualified Code(s): N39.0 - Urinary tract infection, site not specified Code(s): N39.0 - Urinary tract infection, site not specified Status: Acute (18) Anxiety and depression: Code(s): F41.9 - Anxiety disorder, unspecified; F32.9 - Major depressive disorder, single episode, unspecified Status: Chronic (19) DIC (disseminated intravascular coagulation): Code(s): D65 - Disseminated intravascular coagulation [defibrination syndrome] Status: Acute (20) High anion gap metabolic acidosis: Code(s): E87.2 - Acidosis Status: Acute (21) ANA (acute kidney injury): Code(s): N17.9 - Acute kidney failure, unspecified Status: Acute (22) Elevated INR: Code(s): R79.1 - Abnormal coagulation profile Status: Acute (23) Lactic acidosis: Code(s): E87.2 - Acidosis Status: Acute Additional Plan Sepsis with concerns for DIC; TTP/HUS under investigation: Patient started on broad-spectrum antibiotics: Vancomycin and imipenem (discussed with nephrology regarding concerns for ANA, and Nephrology agreed with starting this combination of medication) Id and Hematology Oncology were also brought on board; recommendations appreciated Elevated LDH, elevated D-dimer, elevated leukocytosis, elevated INR; these are all very concerning for DIC At this time it is very difficult to differentiate between TTP/HUS and DIC as patient did have E coli in the urine
[2021-05-11 18:24] LABS: Glucose Point of Care 80 mg/dl (65-105)
--- NOTE | 2021-05-11 19:53 | CONS_ITS ---
DATE OF CONSULTATION: REASON FOR CONSULTATION: Leukocytosis. HISTORY OF PRESENT ILLNESS: 81-year-old female who cannot provide any coherent history. She was admitted to the hospital on May 06 with several weeks of anorexia, nausea, fatigue, poor p.o. intake, dark urine incontinence, probably to the urine. The patient was investigated and was admitted. She has been given various antibiotics since arrival. Currently on piperacillin and vancomycin. She also received 24 hours of methylprednisolone starting on the . Her white blood cell count had normalized after arrival, tremaine again and consult requested today. She cannot provide any further history due to confusion. ALLERGIES: ADHESIVE TAPE. HABITS: No tobacco. No alcohol or illicit drugs. PRESENT MEDICATIONS: No ongoing immunosuppressants. PAST MEDICAL HISTORY: Anxiety and depression, breast cancer, hypertension, cerebral hemorrhage, diverticulosis, gout, iron deficiency anemia, , osteoporosis, psoriasis, now on systemic immunosuppressants. Chronic urinary incontinence, mastectomies, colon polyps. FAMILY HISTORY: Diabetes, cancer, stroke. SOCIAL HISTORY: No family at the bedside. She is . Lives in [place], [place]. REVIEW OF SYSTEMS: 14-point review not obtainable from the patient but attempted. PHYSICAL EXAMINATION: GENERAL: Elderly female who appears cachectic. No respiratory distress. VITAL SIGNS: She has had no fever since arrival. Some mild hypothermia down to 35.8, 108, 26, 148/96. SKIN: Ecchymoses. Warm and dry. No rashes. No skin breakdown. NODES: She has no axillary or cervical adenopathy. EENT: Conjunctivae have mild injection. No discharge. No palpebral edema. Nose is patent. The oral mucosa is dry. No thrush. NECK: No meningismus or thyromegaly. LUNGS: On tidal respirations, clear to auscultation and percussion. CARDIAC: Tachycardic, regular. No murmurs. Radial pulses are trace. Dorsalis pedis pulses trace. ABDOMEN: Nontender. No mass. No organomegaly. EXTREMITIES: Muscle wasting. No clubbing, cyanosis, or edema. LABORATORY DATA: Blood cultures no growth 5 days incubation. Urine culture with a fully susceptible E coli. White count on admission 14.0, declined to 9.4, now up to 24.9; 92% PMNs; hemoglobin is 12.4, stable; platelets are 31. Prothrombin time prolonged. She has hyperchloremia, low CO2 at 19, BUN 36, creatinine 1.5 up from 1.1. Ferritin is high. Bilirubin and other liver function tests high. CRP 5.8. Urinalysis, reviewed results. RADIOLOGY: CT chest, abdomen, pelvis compared to 4 days earlier, short segment wall thickening, ascending colon, pleural effusions, hiatal hernia, mild right hydronephrosis and previous abdomen and pelvic CT showed perinephric stranding. Abdominal ultrasound, gallbladder polyps. ASSESSMENT: 1. Leukocytosis due to urinary tract infection and corticosteroids. 2. Uncomplicated urinary tract infection, susceptible Escherichia coli. 3. Large hiatal hernia. 4. Thrombocytopenia and abnormal liver function tests, being evaluated by other physicians. RECOMMENDATIONS: 1. Narrow spectrum of activity to cefazolin. 2. Combination of piperacillin and vancomycin has increased risk for acute kidney injury and I would avoid. For this patient that combination no longer needed, so we will stop. 3. Once stable, oral cephalexin be appropriate adjusted for her renal function at the time. 4. No further testing needed from my standpoint. 5. Thank you for asking me to see her. Call if questions. DENA JACKSON M.D. PROFESSIONAL [employer]ER PROFESSIONAL [employer]ER D
[2021-05-11 20:10] LABS: SARS-CoV-2 RNA PCR Negative
[2021-05-11 20:11] LABS: Complement C3 97 mg/dL (88-165)
[2021-05-11] MEDS: hydrALAZINE HCL 20 MG/ML VIAL 10 MG IV PUSH (20:26)
[2021-05-11 21:09] LABS: Fibrinogen < 60 mg/dl (215-510)
--- NOTE | 2021-05-11 23:31 | PCRCNOTE ---
Window of time for administration has passed. See next scheduled administration.
[2021-05-12] VITALS (12 sets, daily range): BP systolic 133–158; BP diastolic 84–94; PULSE 105–125; RESP 18–40; TEMP 35.7–36.9; O2SAT 95–100
[2021-05-12] MEDS: IPRATROPIUM BR 0.02% INH SOLN 0.5 MG/2.5 ML VIAL INHALATION ×2 (04:14→09:33)
[2021-05-12] MEDS: ALBUTEROL SULFATE NEB 2.5 MG/0.5 ML INH INHALATION ×2 (04:14→09:33)
[2021-05-12] MEDS: SODIUM CHLORIDE 0.9% IV 1,000 ML 100 ML IV CONT (05:35)
[2021-05-12 06:14] LABS: Add Urine Microscopic? YES; Appearance Urine Cloudy (Clear); Bacteria Urine Trace /hpf; Bilirubin Urine Negative (Negative); Blood Urine 3+ (Negative); Color Urine Amber (Yellow); Glucose Urine UA Negative (Negative); Ketones Urine Negative (Negative); Leukocyte Esterase Ur 2+ LEU/UL (NEGATIVE); Mucus Urine Rare /lpf; Nitrate Urine Negative (Negative); Protein Urine 2+ mg/dL (Negative); RBC Urine 51-75 /hpf (0-2); Specific Grav Ur 1.025 (1.001-1.035); WBC Clumps Urine Present /HPF; WBC Urine >75 /hpf (0-3)
[2021-05-12 06:29] LABS: Hematocrit 37.4 % (37.0-47.0); Hemoglobin 11.7 g/dL (12.0-15.0); Mean Corpuscular HGB Conc 31.3 g/dl (32-36); Mean Corpuscular Hemoglobin 32.4 pg (26-34); Mean Corpuscular Volume 103.6 fl (80-100); Red Blood Count 3.61 M/mm3 (4.2-5.4); Red Cell Distribution Width 22.6 % (11.5-14.5); White Blood Count 34.4 K/mm3 (4.5-10.0)
[2021-05-12 06:42] LABS: INR 3.5; Partial Thromboplastin Time 37.6 SECONDS (22.3-36.8); Platelet Count Result 19 k/mm3 (150-375); Prothrombin Time 34.4 Seconds (11.1-14.7)
[2021-05-12 07:33] LABS: D Dimer > 20.00 ug/mL (<0.48)
[2021-05-12 07:44] LABS: Lactic Acid Reflex 5.1 mmol/L (0.7-2.1)
[2021-05-12 08:02] LABS: Band Neutrophils Percent 3 % (0-6); Lymphocytes Absolute Manual 2.06 K/mm3 (1.1-4.5); Monocytes Absolute Manual 1.37 K/mm3 (0.1-0.90); Monocytes Percent Manual 4 % (3-9); Myelocytes Percent 2 %; Neutrophils Absolute Manual 30.27 K/mm3 (1.7-7.2); Neutrophils Percent Manual 85 % (46-73); Nucleated Red Blood Cells 57 %; Total Cells Counted 100
[2021-05-12 08:03] LABS: Platelet Estimate Decreased (Adequate); Poikilocytosis 1+ (NORMAL); Schistocytes 1+ (NORMAL)
[2021-05-12 09:34] LABS: Reflex Lactic Acid Yes or No Add Lactic
[2021-05-12] MEDS: PHYTONADIONE ADULT INJ 10 MG in DEXTROSE 5% IN WATER 50 ML 100 MG IVPB (09:37)
[2021-05-12] MEDS: FAMOTIDINE 20 MG/2 ML VIAL IV PUSH (09:51)
[2021-05-12] MEDS: ARTIFICIAL TEARS OPHTH SOLN 15 ML BOTTLE 1 DROP EACH EYE ×3 (09:52→16:37)
[2021-05-12] MEDS: SODIUM CHLORIDE 0.9% IV 1,000 ML 999 ML IV CONT (10:34)
[2021-05-12 10:57] LABS: Glucose Point of Care 50 mg/dl (65-105)
[2021-05-12] MEDS: DEXTROSE 50% 25 GM/50 ML SYRINGE IV PUSH (11:05)
[2021-05-12 11:06] LABS: Alanine Aminotransferase 265 U/L (4-35); Albumin Level 3.1 g/dL (3.5-5.1); Alkaline Phosphatase 588 U/L (38-126); Anion Gap 17 mmol/L (8-16); Aspartate Amino Transferase 657 U/L (14-36); Bilirubin,Total 10.2 mg/dL (0.2-1.3); Blood Urea Nitrogen 44 mg/dL (7-17); CRP 5.4 mg/dL (<1.0); Calcium 8.5 mg/dL (8.4-10.2); Carbon Dioxide 14 mmol/L (22-30); Chloride 117 mmol/L (98-107); Creatine Kinase 353 U/L (30-135); Estimated CRCL calculation 16 ml/min; Estimated Glomerular Filt Rate 25; Glucose 42 mg/dL (65-110); Magnesium 2.1 mg/dL (1.6-2.3); Potassium 3.5 mmol/L (3.4-5.0); Sodium 148 mmol/L (137-145)
[2021-05-12 11:26] LABS: Glucose Point of Care 85 mg/dl (65-105)
--- NOTE | 2021-05-12 11:55 | PCOTNOTE ---
Per RN, patient's platelets dropping, etc. and patient being moved to ICU. Patient not seen for this reason for OT. Will continue plan of care as appropriate.
--- NOTE | 2021-05-12 12:10 | PCNFU ---
Nutrition Follow-Up Complete: Inadequate Oral Intake as related to constipation/nausea as evidenced by poo po intake reported. Goal: adequate Intake of at least 75% of meals/supplements Limited progress towards goal. We will continue current goal. Pt current nutrition is NPO. Nutrition recommendation: 25 ml/hr advancing by 10 ml q 4 hours to goal rate of Jevity 1.2 at 55 ml/hr Last recorded weight is 55.6 kg, down from 61.2 kg. Bowel Motility:+BM reported 05/11 Labs Reviewed:Hgb 11.7,BUN 44,Cr 1.9,Alb 3.1,Na 148 Meds Noted:Effexor,Atrovent,NS,Pepcid Additional Notes: Nutrition follow up. Patient remains NPO. Speech Therapy evaluation today continuing to recommend NPO. Patient is being transferred to ICU. Tube feeding recommendations are given. Monitoring: Will monitor every 3 days.
--- NOTE | 2021-05-12 12:35 | WPDONCPN ---
Progress Note: A/P - Additional Plan Thrombocytopenia and mild anemia. Labs noted. This is likely secondary to DIC and sepsis. D-dimer is elevated and fibrinogen is quite low suggesting says DIC and sepsis. This another differential include TTP and HUS due to presence of schistocyte but again only 1+. LDH was elevated. Benjamin test came back positive suggesting against TTP HUS. Nephrology service was also consulted. ORLIN TS13 level is pending. Other possibility include ITP but platelet antibodies are pending. Platelet count has declined. Agree to transfuse platelet as needed. Hoping to avoid steroid due to infection. If platelet antibodies comes back positive we will use IV IgG. Renal insufficiency. Nephrology service has been consulted. DIC and sepsis. Infectious Disease consult noted. Patient is on imipenem. - Time Spent With Patient Total time spent is greater than 50% in coordination of care (as documented) at patient's floor/unit and/or counseling patient: 15 - 25 minutes Subjective Interval history: Leukocytosis Thrombocytopenia and mild macrocytic anemia Renal insufficiency DIC and sepsis Review of Systems - Review of Systems Patient remains quite confused. She seems to be slightly uncomfortable. Patient daughter was present in the room. Patient is not able to answer any questions. She does have some bruising in the upper extremity but no obvious bleeding signs. No fevers and chills. - Neurologic Reports weakness, Denies abnormal speech, Denies headache(s), Denies focal weakness, Denies numbness, Denies sensory deficit Exam Vital signs: Temp Pulse Resp BP Pulse Ox 36.9 C 108 H 22 H 158/94 H 95 05/12/21 05:49 05/12/21 09:56 05/12/21 09:55 05/12/21 05:49 05/12/21 09:56 Narrative: Lungs are clear to auscultation bilaterally Cardiovascular regular rate rhythm no murmurs Abdomen soft nontender nondistended bowel sounds are positive Extremities no edema Mental status. Patient remains confused PN: Objective Data - Labs CBC & Chem 7: 05/12/21 05:52 05/12/21 05:52 Labs: Laboratory Results - last 24 hr 05/10/21 05/11/21 05/11/21 13:24 06:43 12:25 WBC RBC Hgb Hct MCV MCH MCHC RDW Plt Count MPV Immature Gran % (Auto) Neut % (Auto) Lymph % (Auto) [place] % (Auto) Eos % (Auto) Baso % (Auto) Lymph # (Auto) [place] # (Auto) Eos # (Auto) Baso # (Auto) Abs Immat Gran (auto) Absolute Neuts (auto) Absolute Nucleated RBC Total Counted Neutrophils % (Manual) Band Neutrophils % Lymphocytes % (Manual) Monocytes % (Manual) Myelocytes % Nucleated RBC % Abs Neuts (Manual) Abs Lymphs (Manual) Abs Monocytes (Manual) Nucleated RBCs Platelet Estimate % Immature Plt Fraction Poikilocytosis Schistocytes PT INR APTT Fibrinogen D-Dimer Sodium Potassium Chloride Carbon Dioxide Anion Gap BUN Creatinine Estim Creat Clear Calc Estimated GFR Glucose POC Capillary Glucose 97 Lactic Acid Calcium Magnesium Ferritin > 2000.00 H Total Bilirubin Direct Bilirubin AST ALT Alkaline Phosphatase Total Creatine Kinase Troponin I C-Reactive Protein Total Protein Albumin Urine Color Urine Appearance Urine pH Ur Specific Superior Urine Protein Urine Glucose (UA) Urine Ketones Ur Blood (Man) Urine Nitrate Urine Bilirubin Urine Urobilinogen Ur Leukocyte Esterase Urine RBC Urine WBC Urine WBC Clumps Urine Bacteria Urine Mucus Complement C3 Complement C4 SARS-CoV-2 RNA (RT-PCR) Negative SARS-CoV-2 Ag (Rapid) Cancelled Blood Type FRANDY, IgG Interpret FRANDY, Poly Interpret FRANDY, Complement Interp 05/11/21 05/11/21 05/11/21 13:13 14:16 14:16 WBC 28.3 H RBC 3.71 L Hgb 12.0 Hc
[2021-05-12] MEDS: DEXTROSE 5%/0.9% SOD CHL 1,000 ML 200 ML IV CONT ×2 (12:37→16:37)
[2021-05-12] MEDS: SODIUM CHLORIDE 0.9% IV 250 ML 30 ML IV CONT (13:33)
[2021-05-12] MEDS: TUBING, BLOOD PLUM PUMP TUBING 1 EACH XX (13:34)
[2021-05-12] MEDS: MORPHINE SULFATE (*CRX) 2 MG/ML INJ 0.5 MG IV PUSH (13:54)
--- NOTE | 2021-05-12 14:40 | WPDCNINT ---
Assessment and Plan Assessment and plan (1) Sepsis: Qualifiers: Sepsis type: sepsis due to unspecified organism Sepsis acute organ dysfunction status: unspecified Qualified Code(s): A41.9 - Sepsis, unspecified organism Code(s): A41.9 - Sepsis, unspecified organism Status: Acute (2) Lactic acidosis: Code(s): E87.2 - Acidosis Status: Acute (3) ANA (acute kidney injury): Code(s): N17.9 - Acute kidney failure, unspecified Status: Acute (4) DIC (disseminated intravascular coagulation): Code(s): D65 - Disseminated intravascular coagulation [defibrination syndrome] Status: Acute (5) Elevated troponin: Code(s): R77.8 - Other specified abnormalities of plasma proteins Status: Acute Additional Plan Earlier when I spoke to Dr. Lewis, high recommended transfusion of FFP, platelets, cryoprecipitate, IV fluid bolus and vitamin K. Patient was already on broad-spectrum antibiotics. When I went to see patient on the floor prior to transfer to ICU. I examined the patient and I met with patient's family including patient's , brother and 2 daughters in presence of patient's nurse to discuss medical decisions and level of care regarding patient's current multi organ failure. Patient appears to have sepsis, persistent lactic acidosis, DIC, ANA, non ST segment elevation AR. Patient herself is confused and is unable to participate. I updated them with treatment plan of transferring patient to ICU, expected prognosis and different potential outcomes. They told me that their goal was to keep patient comfortable and for the family to be with her. They do not feel that aggressive therapy and interventions are going to change long-term outcome. The family has decided, in accordance with pt's wishes, to discontinue all medical therapy and institute comfort measures only at this time. I have discussed with primary physician Dr. Lewis who is in agreement with plan. We will order all the necessary medications for comfort care and for now patient will now be transferred to ICU. Total Critical Care Time - 45 minutes Due to a high probability of clinically significant, life threatening deterioration, the patient required my highest level of preparedness to intervene emergently and I personally spent this critical care time directly and personally managing the patient. This critical care time included obtaining a history; examining the patient; pulse oximetry; ordering and review of studies; arranging urgent treatment with development of a management plan; evaluation of patient's response to treatment; frequent reassessment; and discussions with other providers. It was exclusive of separately billable procedures and treating other patients and teaching time. Please see Assessment and Plan section and the rest of the note for further information on patient assessment and treatment Cat[employer] Worker Consult Note Consult date: 05/12/21 Time Seen: 14:00 HPI: Nicole Peña is a 81 year old female was admitted on 05/06 with UTI sepsis hypovolemia. Her UA was suggestive of UTI and later she grew out E coli. Head CT showed chronic changes and abdomen CT showed hiatal hernia along with wall thickening of ascending colon. Patient was started on antibiotics and was given IV fluids. Ultrasound of gallbladder showed polyps lower extremity Dopplers were negative for DVT. Ultrasound showed mild hydronephrosis. Patient developed coagulopathy and thrombocytopenia. Patient was seen by Hematology general surgery [facility]. Today I was consulted to evaluate patient for transfer to ICU due to coagulopathy, thrombocytopenia, lactic acidosis. Patient was already switched to imipenem and vancomycin. I went and saw the patient in room 330. Patient appeared to be confused, in respiratory distress, agitated and was not following commands. She was unable to provide any history and
--- NOTE | 2021-05-12 15:18 | PCCARD ---
CANCELLED ECHOCARDIOGRAM PER KIMBERLY ADMITTING CLERK - PATIENT ON COMFORT MEASURES
--- NOTE | 2021-05-12 16:30 | PM.IMPN ---
Progress Note: A&P Assessment and Plan (1) Elevated troponin: Code(s): R77.8 - Other specified abnormalities of plasma proteins Status: Acute (2) Lactic acidosis: Code(s): E87.2 - Acidosis Status: Acute (3) Elevated INR: Code(s): R79.1 - Abnormal coagulation profile Status: Acute (4) ANA (acute kidney injury): Code(s): N17.9 - Acute kidney failure, unspecified Status: Acute (5) Acute renal failure with oliguria: Code(s): N17.9 - Acute kidney failure, unspecified; R34 - Anuria and oliguria Status: Acute (6) High anion gap metabolic acidosis: Code(s): E87.2 - Acidosis Status: Acute (7) DIC (disseminated intravascular coagulation): Code(s): D65 - Disseminated intravascular coagulation [defibrination syndrome] Status: Acute (8) Acute respiratory failure with hypoxia: Code(s): J96.01 - Acute respiratory failure with hypoxia Status: Acute (9) Colitis: Code(s): K52.9 - Noninfective gastroenteritis and colitis, unspecified Status: Acute (10) Elevated d-dimer: Code(s): R79.89 - Other specified abnormal findings of blood chemistry Status: Acute (11) Hyperbilirubinemia: Code(s): E80.6 - Other disorders of bilirubin metabolism Status: Acute (12) Sepsis: Qualifiers: Sepsis type: sepsis due to unspecified organism Sepsis acute organ dysfunction status: unspecified Qualified Code(s): A41.9 - Sepsis, unspecified organism Code(s): A41.9 - Sepsis, unspecified organism Status: Acute (13) Septic shock: Code(s): A41.9 - Sepsis, unspecified organism; R65.21 - Severe sepsis with septic shock Status: Acute (14) Hypertension: Qualifiers: Hypertension type: primary hypertension Qualified Code(s): I10 - Essential (primary) hypertension Code(s): I10 - Essential (primary) hypertension Status: Acute (15) Dysphagia: Qualifiers: Dysphagia type: unspecified Qualified Code(s): R13.10 - Dysphagia, unspecified Code(s): R13.10 - Dysphagia, unspecified Status: Acute (16) Pyelonephritis of right kidney: Code(s): N12 - Tubulo-interstitial nephritis, not specified as acute or chronic Status: Acute (17) Transaminitis: Code(s): R74.01 - Elevation of levels of liver transaminase levels Status: Acute (18) Thrombocytopenia: Code(s): D69.6 - Thrombocytopenia, unspecified Status: Acute (19) Leukocytosis: Qualifiers: Leukocytosis type: unspecified Qualified Code(s): D72.829 - Elevated white blood cell count, unspecified Code(s): D72.829 - Elevated white blood cell count, unspecified Status: Acute (20) UTI (urinary tract infection): Qualifiers: Hematuria presence: without hematuria Urinary tract infection type: site unspecified Qualified Code(s): N39.0 - Urinary tract infection, site not specified Code(s): N39.0 - Urinary tract infection, site not specified Status: Acute (21) Moderate aortic stenosis: Code(s): I35.0 - Nonrheumatic aortic (valve) stenosis Status: Acute (22) Gout: Qualifiers: Gout site: unspecified site Gout etiology: unspecified cause Chronicity: unspecified Qualified Code(s): M10.9 - Gout, unspecified Code(s): M10.9 - Gout, unspecified Status: Acute (23) Anxiety and depression: Code(s): F41.9 - Anxiety disorder, unspecified; F32.9 - Major depressive disorder, single episode, unspecified Status: Chronic (24) Benign essential hypertension: Code(s): I10 - Essential (primary) hypertension Status: Acute (25) Hypoglycemia: Code(s): E16.2 - Hypoglycemia, unspecified Status: Acute Additional Plan 81-year-old female with past medical history significant for hypertension, hyperlipidemia, anxiety, depression, aortic stenosis, gout and history
--- NOTE | 2021-05-12 16:48 | PM.PNGS ---
Progress Note: A&P Assessment and Plan (1) Abnormal computed tomography of abdomen and pelvis: Code(s): R93.5 - Abnormal findings on diagnostic imaging of other abdominal regions, including retroperitoneum Status: Acute Assessment and Plan: Patient had area on the ascending colon where there was wall thickening and some evidence of inflammation around this area on the admitting CT and again yesterday. There was no worsening of the findings on yesterday CT. Patient repeatedly denied abdominal pain when I had seen her. She is really not able to relate history today. She has had no diarrhea or bloody stools. She has been on antibiotics with ceftriaxone initially for her pyelonephritis. I explained to the patient's daughter and to Dr. Morales that there were no abdominal symptoms earlier and really no significant clinical findings on exam at this time. This abnormality in and of itself is not enough to indicate surgery. Colonoscopy would need to be done to verify its presence and whether it was significant. Patient is really not in condition at this time for colonoscopy. There was no evidence of an acute abdomen on CT or exam. I do not feel patient has indications for surgery and would not likely be a surgical candidate even if she did. (2) Septic shock: Code(s): A41.9 - Sepsis, unspecified organism; R65.21 - Severe sepsis with septic shock Status: Acute Assessment and Plan: Etiology unclear the patient has clearly deteriorated with evidence of sepsis. (3) DIC (disseminated intravascular coagulation): Code(s): D65 - Disseminated intravascular coagulation [defibrination syndrome] Status: Acute Assessment and Plan: Very low platelet count and signs of sepsis and DIC. Prognosis very poor. Subjective Subjective Date/Time Seen: 05/12/21 16:48 Patient reports: other (Altered mental status, patient unable to give history) Interval history: Patient was seen on admission 05/07/2021 and followed through 05/09/2021. On admission she was noted to have a very large hiatal hernia with stomach colon and pancreas herniated. She also had an area on the ascending colon which was thickened with some surrounding inflammation suggestive of possible colitis. During that initial evaluation, patient had no abdominal pain, no diarrhea, no trouble eating or swallowing. her urine culture was positive and she had right hydronephrosis. She seemed to be responding to antibiotics for pyelonephritis. Her white blood cell count had decreased to normal. She was still thrombocytopenic but it was stable. I was called to see the patient again today. She has been deteriorating particularly since yesterday, 05/11/2021. Platelet count has continued to diminish. White blood cell count jumped to over 25,000. She has developed lactic acidosis and diminished mental status. Her deterioration has continued today and I was asked to see the patient by Dr. Morales for surgical consultation of her sepsis and CT abnormality. CTA of the chest and pelvis has been done again yesterday and showed nearly the same abnormality in the ascending colon suggestive of a small area of colitis. I spoke with the patient's daughter in the room. The family is not interested in aggressive procedures intubation or abdominal surgery unless clearly indicated and likely to be helpful. Review of Systems Review of Systems: ROS unobtainable: Yes unobtainable due to medical condition and unobtainable due to mental status Exam Const: General: lethargic Orientation/consciousness: patient obtunded Limitations: altered mental status GI: Inspection: normal to inspection and non-distended GI Palp: Yes Soft to palpation and Yes Tenderness to palpation present (GI) (No obvious tenderness or guarding) Objective Data Vital Signs Vital Signs: Vital Signs - 24 hr 05/11/21 20:00 05/12/21 00:00 05/12/21 04:00 Temperature 36.4 C 36.6 C Pulse Rate 113 H 105 H 10
--- NOTE | 2021-05-12 17:44 | PC.NURSE ---
Patient admitted to [facility] services for dx of Sepsis. Patient moved to room 318 earlier this shift. New Medical Number obtained.
[2021-05-12 22:13] LABS: Haptoglobin 83 mg/dL (43-212)
[2021-05-13 02:43] LABS: Ferritin > 2000.00 ng/mL (11.1-264)
--- NOTE | 2021-07-31 12:06 | PM.DS ---
DS: Admitting Diagnosis Discharge Date 05/12/21 Admitting Diagnosis sepsis DS: Discharge Diagnosis Discharge Diagnosis (1) Hypoglycemia: Code(s): E16.2 - Hypoglycemia, unspecified Status: Acute (2) Dysphagia: Qualifiers: Dysphagia type: unspecified Qualified Code(s): R13.10 - Dysphagia, unspecified Code(s): R13.10 - Dysphagia, unspecified Status: Acute (3) Septic shock: Code(s): A41.9 - Sepsis, unspecified organism; R65.21 - Severe sepsis with septic shock Status: Acute (4) Acute renal failure with oliguria: Code(s): N17.9 - Acute kidney failure, unspecified; R34 - Anuria and oliguria Status: Acute (5) Elevated troponin: Code(s): R77.8 - Other specified abnormalities of plasma proteins Status: Acute (6) Lactic acidosis: Code(s): E87.2 - Acidosis Status: Acute (7) High anion gap metabolic acidosis: Code(s): E87.2 - Acidosis Status: Acute (8) DIC (disseminated intravascular coagulation): Code(s): D65 - Disseminated intravascular coagulation [defibrination syndrome] Status: Acute (9) Sepsis: Qualifiers: Sepsis type: sepsis due to unspecified organism Sepsis acute organ dysfunction status: unspecified Qualified Code(s): A41.9 - Sepsis, unspecified organism Code(s): A41.9 - Sepsis, unspecified organism Status: Acute DS: Summary Hospital Course Reason for hospitalization: Diverticulitis Hospital Course: 81-year-old female with past medical history significant for hypertension, hyperlipidemia, anxiety, depression, aortic stenosis, gout and history of breast cancer status post treatment presented with complaints of poor appetite and generalized weakness. Patient was being managed as a case of acute pyelonephritis with hydronephrosis identified on the right kidney. In addition she was noted to grow E coli in urine which she received IV antibiotics, ceftriaxone, targeting the susceptibility of E coli. The CT scan done at the time of her arrival also showed concerns for possible colitis and a large hiatal hernia. She receive 1 dose of Zosyn on 05/07 for this purpose. Through the course of her stay her leukocytosis improved however was noted to show an upward trend beginning 05/10. A CT scan was performed on 05/10 that revealed concerns of colitis in the ascending colon again, and she was started on Zosyn for this reason on 05/10. Today on 05/11, patient was noted to have worsening leukocytosis, tachycardia, ANA and worsening mentation. In addition she continued to have worsening thrombocytopenia, hyperbilirubinemia, elevated LDH, appropriately elevated absolute retic count 4.2, positive schistocytes, up trending D-dimer, uptrending PT, APTT, high anion gap metabolic acidosis lactic acidosis. These new changes were highly suspicious for sepsis related to DIC, and also remain concerning for TTP/HUS. Id and Hematology Oncology were brought on board. Heme Onc recommended Nephrology consultation for possible plasmapheresis. Nephrology was consulted, and the case was discussed over the phone and it was agreed that at this time managing as DIC related to sepsis and treating sepsis would be more appropriate. Currently she is on 2 L of nasal cannula and results of her COVID swab resulted negative. It was confirmed today from her daughter that the patient is indeed COVID vaccinated completely. In the light of worsening condition, the daughter and patient's family were contacted and code status was discussed. A.m. of 813 patient was noted to decompensate further with tachycardia worsening leukocytosis worsening bilirubinemia worsening thrombocytopenia she had critical Care consult was sought. It was decided the patient will be transfused with platelets and FFP however later on the family decided to respect the patient's wishes and she would like to be hospice. All the antibiotics and blood products were discontinued sh
== END 2021-05-12 17:45 | disposition hospice, inpatient (51) | DRG 871 ==
LOC: ANHED 18:18 → ANH3MED 18:39 → ANH3MEDSUR 05-16 10:50
PROVIDERS: Internal Medicine; Internal Medicine Hematology & Oncology; Student in an Organized Health Care Education/Training Program; Admitting Provider Internal Medicine; Emergency Provider Emergency Medicine; PCP Family Medicine; Visit Provider Physician Assistant
DX: A41.9 Sepsis, unspecified organism (principal); R65.21 Severe sepsis with septic shock; D65 Disseminated intravascular coagulation [defibrination syndrome]; J96.01 Acute respiratory failure with hypoxia; N10 Acute pyelonephritis; N13.30 Unspecified hydronephrosis; N17.9 Acute kidney failure, unspecified; E87.2 Acidosis; D62 Acute posthemorrhagic anemia; J44.1 Chronic obstructive pulmonary disease with (acute) exacerbation; B96.20 Unspecified Escherichia coli [E. coli] as the cause of diseases classified elsewhere; Z20.822 Contact with and (suspected) exposure to COVID-19; E86.0 Dehydration; D72.829 Elevated white blood cell count, unspecified; K44.9 Diaphragmatic hernia without obstruction or gangrene; I10 Essential (primary) hypertension; I35.0 Nonrheumatic aortic (valve) stenosis; R13.10 Dysphagia, unspecified; E16.2 Hypoglycemia, unspecified; F41.8 Other specified anxiety disorders; D50.9 Iron deficiency anemia, unspecified; M81.0 Age-related osteoporosis without current pathological fracture; L40.9 Psoriasis, unspecified; K57.90 Diverticulosis of intestine, part unspecified, without perforation or abscess without bleeding; D69.6 Thrombocytopenia, unspecified; R32 Unspecified urinary incontinence; M10.9 Gout, unspecified; Z85.3 Personal history of malignant neoplasm of breast; Z98.42 Cataract extraction status, left eye; Z98.41 Cataract extraction status, right eye; Z87.891 Personal history of nicotine dependence
CPT/HCPCS: 36415; 36430; 70450; 71045; 71275; 74177; 76705; 80048; 80053; 80074; 80076; 80307; 81001; 82248; 82550; 82607; 82728; 82746; 82948; 83010; 83605; 83615; 83690; 83735; 84145; 84443; 84484; 85025; 85027; 85046; 85055; 85380; 85384; 85397; 85610; 85652; 85730; 86023; 86140; 86160; 86880; 86900; 86901; 87040; 87077; 87086; 87088; 87186; 87426; 92526; 92610; 92611; 93005; 93970; 94640; 96361; 96365; 96366; 96367; 96375; 96376; 97110; 97161; 97165; 99285; A9270; C9803; G0378; J0360; J0690; J0696; J0743; J2060; J2270; J2405; J2543; J2920; J3370; J3430; J3475; J3480; J7030; J7042; J7050; J7120; P9017; Q9967; U0003; U0005

== ENCOUNTER 2021-05-12 17:30 | HOS | payer OTHER, MEDICARE, SELFPAY ==
[2021-05-12 18:37] VITALS: O2SAT 95
[2021-05-12 18:38] VITALS: BMI 23.4
--- NOTE | 2021-05-13 09:27 | PM.IMHP ---
H&P: HPI History of Present Illness Date/Time: 05/13/21 09:27 Chief Complaint: uncontrolled restlessness and dyspnea Narrative: 81 y/o f w hx , HH, breast CA was admitted to acute care with UTI and septic shock ANA and respiratory failure. She had been declining for 2 weeks with decreased appetite and increased weakness. Urine grew sensitive e coli. She failed to respond to appropriate antibiotics, fluid resuscitation, and pressors. Because of her comorbidities, her family opted for comfort care only. PPS was 10 on 05/12. Six months ago, her PPS was 70. She lived with her spouse and was independent for all ADLs. Review of Systems Review of Systems: ROS unobtainable: Yes unobtainable due to medical condition PMFSH Past Medical History Medical History Anxiety and depression Benign essential hypertension Breast cancer in female (11/2003) Left breast cancer in 2003. Right breast cancer 2006. Cerebral hemorrhage following injury (07/2018) Traumatic subarachnoid hemorrhage. Diverticulosis Gout Iron deficiency anemia Moderate aortic stenosis Osteoporosis Psoriasis Rectal bleeding Colonoscopy in 10/2020 showed diverticulosis. Urinary incontinence Surgical History Surgical History History of bilateral cataract extraction History of bilateral mastectomy Left breast 12/03/2003. Right breast 11/21/2011. History of colonoscopy with polypectomy Family History Family History Father Diabetes mellitus Grandparent Cerebrovascular accident Mother Family history of lung cancer Social History Social History Social History: The patient lives in [place] with her , Connor. She has a remote smoking history. No alcohol or illicit substance abuse. She designates her Connor and her daughter Jeanne Salazar as her surrogate decision makers. Code status: Full code. Sexual Orientation (if Verbalized by the Patient): Straight or Heterosexual Spiritual care concerns: No Meds Home Medications and Allergies Home Medications Medication Instructions Recorded Confirmed Type calcium carbonate 600 mg calcium 600 mg PO BID 10/14/19 05/06/21 History (1,500 mg) tablet ergocalciferol (vitamin D2) 1,250 1,250 mcg PO [id number] cap 10/14/19 05/06/21 History mcg (50,000 unit) capsule alendronate 70 mg tablet 70 mg PO WEEKLY #12 tablet 04/21/20 05/06/21 Rx Systane (PF) 1 drp EACH EYE TID 11/09/20 05/06/21 History vitamins A,C,Q-uqfy-mrfzfx 2 tablet PO BID 11/09/20 05/06/21 History diltiazem HCl 120 mg tablet 120 mg PO DAILY #90 tablet 11/14/20 05/06/21 Rx venlafaxine 75 mg capsule,extended 75 mg PO DAILY #90 cap 11/29/20 05/06/21 Rx release 24 hr colchicine 0.6 mg capsule 0.6 mg PO DAILY PRN cap 12/29/20 05/06/21 History lidocaine HCl 4 % topical cream 1 applic TOPICAL TID PRN #120 g 01/27/21 05/06/21 Rx polyethylene glycol 3350 17 gram 17 g PO DAILY #30 ea 01/27/21 05/06/21 Rx oral powder packet allopurinol 300 mg tablet 300 mg PO DAILY #90 tablet 02/24/21 05/06/21 Rx losartan 100 mg tablet 100 mg PO DAILY #90 tablet 03/14/21 05/06/21 Rx Allergies Allergy/AdvReac Type Severity Reaction Status Date / Time adhesive tape Allergy Intermediate RED/RASH Verified 05/06/21 19:56 Vital Signs Vital Signs - 24 hr 05/12/21 18:37 Pulse Oximetry 95 Exam Narrative: She prior to being examined. Assessment and Plan Assessment and plan (1) Palliative care by specialist: Code(s): Z51.5 - Encounter for palliative care Status: Acute Assessment and Plan: Meets [facility] criteria due to requiring continuous hydromorphone infusion for control of dyspnea and restlessness (2) Septic shock: Code(s): A41.9 - Sepsis, unspecified organism; R65.
--- NOTE | 2021-05-13 09:41 | PM.DDS ---
Discharge Sum: Prov Provider Primary care physician: Madhavi Jack MD Admitting provider: Corey Knox MD Discharge Sum: Diag Contributing Factors (1) Septic shock: (2) Acute renal failure with oliguria: (3) DIC (disseminated intravascular coagulation): (4) Acute respiratory failure with hypoxia: (5) Colitis: (6) UTI (urinary tract infection): Discharge Sum: Summary Date and Time Date of admission: 05/12/21 17:50 Summary Details: Admitted to inpatient hospice service for uncontrolled dyspnea and restlessness related to sepsis care by UTI with ANA and respiratory failure. Medications were titrated to comfort. Patient peacefully. Additional Data Attending physician: Corey Knox MD
--- NOTE | 2021-06-09 10:31 | PM.DS ---
DS: Admitting Diagnosis Discharge Date 05/12/21 Admitting Diagnosis Sepsis DS: Discharge Diagnosis Discharge Diagnosis (1) Hypoglycemia: Code(s): E16.2 - Hypoglycemia, unspecified Status: Acute (2) Dysphagia: Qualifiers: Dysphagia type: unspecified Qualified Code(s): R13.10 - Dysphagia, unspecified Code(s): R13.10 - Dysphagia, unspecified Status: Acute (3) Septic shock: Code(s): A41.9 - Sepsis, unspecified organism; R65.21 - Severe sepsis with septic shock Status: Acute (4) Acute renal failure with oliguria: Code(s): N17.9 - Acute kidney failure, unspecified; R34 - Anuria and oliguria Status: Acute (5) Elevated troponin: Code(s): R77.8 - Other specified abnormalities of plasma proteins Status: Acute (6) Lactic acidosis: Code(s): E87.2 - Acidosis Status: Acute (7) Elevated INR: Code(s): R79.1 - Abnormal coagulation profile Status: Acute (8) ANA (acute kidney injury): Code(s): N17.9 - Acute kidney failure, unspecified Status: Acute (9) High anion gap metabolic acidosis: Code(s): E87.2 - Acidosis Status: Acute (10) DIC (disseminated intravascular coagulation): Code(s): D65 - Disseminated intravascular coagulation [defibrination syndrome] Status: Acute (11) Colitis: Code(s): K52.9 - Noninfective gastroenteritis and colitis, unspecified Status: Acute (12) Acute respiratory failure with hypoxia: Code(s): J96.01 - Acute respiratory failure with hypoxia Status: Acute (13) Diverticulitis: Code(s): K57.92 - Diverticulitis of intestine, part unspecified, without perforation or abscess without bleeding Status: Acute (14) Person under investigation for COVID-19: Code(s): Z20.822 - Contact with and (suspected) exposure to COVID-19 Status: Acute (15) Elevated d-dimer: Code(s): R79.89 - Other specified abnormal findings of blood chemistry Status: Acute (16) Oliguria: Code(s): R34 - Anuria and oliguria Status: Acute (17) Respiratory distress, acute: Code(s): R06.03 - Acute respiratory distress Status: Acute (18) COPD exacerbation: Code(s): J44.1 - Chronic obstructive pulmonary disease with (acute) exacerbation Status: Acute (19) Hypertension: Qualifiers: Hypertension type: primary hypertension Qualified Code(s): I10 - Essential (primary) hypertension Code(s): I10 - Essential (primary) hypertension Status: Acute (20) Loss of appetite: Code(s): R63.0 - Anorexia Status: Acute (21) Pyelonephritis of right kidney: Code(s): N12 - Tubulo-interstitial nephritis, not specified as acute or chronic Status: Acute (22) Abnormal computed tomography of abdomen and pelvis: Code(s): R93.5 - Abnormal findings on diagnostic imaging of other abdominal regions, including retroperitoneum Status: Acute (23) Transaminitis: Code(s): R74.01 - Elevation of levels of liver transaminase levels Status: Acute (24) Large hiatal hernia: Code(s): K44.9 - Diaphragmatic hernia without obstruction or gangrene Status: Chronic (25) Abnormal urinalysis: Code(s): R82.90 - Unspecified abnormal findings in urine Status: Acute (26) UTI (urinary tract infection): Qualifiers: Hematuria presence: without hematuria Urinary tract infection type: site unspecified Qualified Code(s): N39.0 - Urinary tract infection, site not specified Code(s): N39.0 - Urinary tract infection, site not specified Status: Acute (27) Elevated liver function tests: Code(s): R79.89 - Other specified abnormal findings of blood chemistry Status: Acute (28) Dehydration: Code(s): E86.0 - Dehydration Status: Acute (29) Leukocytosis: Qualifiers: Leukocytosis type: unspecified
== END 2021-05-12 19:10 | disposition expired | DRG 951 ==
PROVIDERS: Admitting Provider Internal Medicine; PCP Family Medicine; Visit Provider Internal Medicine
DX: Z51.5 Encounter for palliative care (principal); A41.9 Sepsis, unspecified organism; R65.21 Severe sepsis with septic shock; D65 Disseminated intravascular coagulation [defibrination syndrome]; J96.01 Acute respiratory failure with hypoxia; N39.0 Urinary tract infection, site not specified; N17.9 Acute kidney failure, unspecified; B96.20 Unspecified Escherichia coli [E. coli] as the cause of diseases classified elsewhere; K52.9 Noninfective gastroenteritis and colitis, unspecified; F41.8 Other specified anxiety disorders; K57.90 Diverticulosis of intestine, part unspecified, without perforation or abscess without bleeding; L40.9 Psoriasis, unspecified; R32 Unspecified urinary incontinence; D50.9 Iron deficiency anemia, unspecified; M81.0 Age-related osteoporosis without current pathological fracture; Z85.3 Personal history of malignant neoplasm of breast
CPT/HCPCS: A9270